=== PATIENT | male | born 1990 | race Caucasian/White ===

== ENCOUNTER 2017-03-01 22:52 | Observation (INO) | payer OTHER, BC ==
[~2017-03-01] VITALS: Ht 180.3 cm; Wt 150.0 kg
[~2017-03-01 22:52] MED LIST: FLUO-1 PO; SERO100T PO; TYLE3 PO
[2017-03-01 22:56] VITALS: BP 175/85; PULSE 98; RESP 16; TEMP 97.7; O2SAT 99
[2017-03-01] MEDS ORDERED: SODIUM CHLOR 0.9% 1000 ML INJ 1,000 ML IV ONE (23:30)
[2017-03-01] MEDS ORDERED: ONDANSETRON HCL 4 MG/2 ML VIAL IV ONE (23:30)
--- NOTE | 2017-03-01 23:37 | PD ---
HPI Chief Complaint: Chest Pain Time Seen by Provider: 23:20 Travel History International Travel<30 days: No Contact w/Intl Traveler<30days: No Traveled to known affect area: No History of Present Illness HPI The patient is a 26 year old male who presents to the [facility] emergency department with a history of reportedly not feeling well over the last week. He reports that he's had diarrhea 4-5 times per day at the onset of the symptoms. He reports that the stool is dark brown. He denies having any blood or mucus in the stool. Additionally reports having nausea without vomiting. The patient reports that he has had a nonproductive cough. He denies having any head congestion or nasal discharge. He denies having any known fevers. He reports that he has had increased fatigue throughout the weekend and a headache that is generalized throughout his head. He reports that he has been taking ibuprofen when necessary for the headache. He reports that this evening while he was at work at 7 PM he noticed that he was beginning to have left-sided chest pain. He denies having any shortness of breath. He denies having any radiation of pain. He denies having any diaphoresis. He reports that throughout the weekend he has been intermittently lightheaded and had fatigue. He reports that the headaches come and go. The patient was noted at work by the work nurse to have elevated blood pressure and an elevated heart rate. He reports that his blood pressure was up to 167/90 and his heart rate was 102- 110. The patient was then sent to the emergency department for evaluation. He reports that he last saw his primary care physician approximately 9 months ago. He denies ever being diagnosed with hypertension previously.On review of systems otherwise, the patient denies having any abdominal pain, urinary symptoms, one-sided weakness, slurred speech, double vision or change in vision , or numbness or tingling to his extremities PFSH Past Medical History Narrative Medical The patient's past medical history is significant for bronchitis, history of depression. Depression: Yes Diminished Hearing: No Past Surgical History Surgical History: No Previous Surgery Social History Alcohol Use: No Tobacco Use: Yes (CHEW) Substance Use: No Allergies-Medications (Allergen,Severity, Reaction): Coded Allergies: No Known Allergies (Verified , 03/01/17) Reported Meds & Prescriptions Reported Meds & Active Scripts Active No Active Prescriptions or Reported Medications Narrative Medication Ibuprofen when necessary headache, 2 tablets one time per week. Review of Systems Except as stated in HPI: all other systems reviewed are Neg General / Constitutional: No: Fever Eyes: No: Visual changes HENT: Positive: Headaches, Lightheadedness, Neck Pain, No: Rhinorrhea, Congestion, Neck Stiffness Cardiovascular: Positive: Chest Pain or Discomfort, No: Dyspnea on exertion Respiratory: Positive: Cough, No: Shortness of Breath Gastrointestinal: Positive: Nausea, Diarrhea, Changes in Bowel Habits, No: Vomiting, Abdominal Pain, Hematemesis, Hematochezia, Indigestion, Loss of Appetite Genitourinary: No: Dysuria Musculoskeletal: No: Pain Skin: No Rash Neurologic: Positive: Weakness (generalized fatigue), Headache, No: Focal Abnormalities, Change in Mentation, Slurred Speech, Sensory Disturbance Psychiatric: No: Depression Endocrine: No: Polydipsia Hematologic/Lymphatic: No: Easy Bruising Physical Exam Narrative General: The patient is a well-developed well-nourished male in no acute distress. Head and Neck exam: Head is normocephalic atraumatic. Eyes: EOMI, pupils are equal round and reactive to light. Nose: Midline septum with pink mucous membranes Mouth: Dentition unremarkable. Moist mucus membranes. Posterior oropharynx is mildly erythematous. No tonsillar hypertrophy. Uvula midline. Airway patent. Neck: No palpable lymphadenopathy. No nuchal rigidity. No thyromegaly. Cardiovascular: Regular rate and rhythm without murmurs, gallops, or rubs. No pulse deficit to the extremities on simultaneous auscultation and palpation of his radial artery. Lungs: Clear to auscultation bilaterally. No wheezes, rhonchi, or rales. Abdomen: Soft, without tenderness to palpation in all 4 quadrants of the abdomen. No guarding, rebound, or rigidity. Normal bowel sounds are audible. No tenderness on palpation of McBurney's point. Extremities: No clubbing, cyanosis, or edema. No calf tenderness on palpation. Back: No costovertebral angle tenderness to palpation. Neurologic Exam: Grossly nonfocal. Skin Exam: No rash noted. Intact skin that is warm and dry. Data Data Last Documented VS Vital Signs Date Time Temp Pulse Resp B/P (MAP) Pulse Ox O2 Delivery O2 Flow Rate FiO2 03/01/17 23:55 23 98 Room Air 03/01/17 22:56 97.7 98 Orders Orders Electrocardiogram (03/01/17 23:26) Complete Blood Count With Diff (03/01/17 23:26) Comprehensive Metabolic Panel (03/01/17:) Creatine Kinase (Cpk) (03/01/17 23:26) Ckmb (Isoenzyme) Profile (03/01/17 23:26) Troponin I (03/01/17:) B-Type Natriuretic Peptide (03/01/17:) Prothrombin Time / Inr (Pt) (03/01/17:) Act Partial Throm Time (Ptt) (03/01/17 23:) Lipase (03/01/17:) Urinalysis - C+S If Indicated (03/01/17:) Westergren Sedimentation Rate (03/01/17 23:) Magnesium (Mg) (03/01/17 23:) Thyroid Stimulating Hormone (03/01/17:) Chest, Single Ap (03/01/17 23:) Ct Brain W/O Iv Contrast(Rout) (03/01/17 23:26) Iv Access Insert/Monitor (03/01/17 23:26) Ecg Monitoring (03/01/17:) Oximetry (03/01/17 23:26) Sodium Chlor 0.9% 1000 Ml Inj (Ns 1000 M (03/01/17 23:30) Ondansetron Inj (Zofran Inj) (03/01/17 23:30) Lactic Acid Sepsis Protocol (03/02/17 01:00) Blood Culture (03/02/17 01:00) Sodium Chlor 0.9% 1000 Ml Inj (Ns 1000 M (03/02/17 01:15) CKMB (03/01/17 ) CKMB% (03/01/17 ) Ct Pulmonary Angiogram (03/02/17 01:59) Iohexol 350 Inj (Omnipaque 350 Inj) (03/02/17 02:10) Enteric Path (Stool) (03/02/17 03:11) C Diff Toxin Pcr (03/02/17 03:11) Stool Wbc (Leukocytes) (03/02/17 03:11) Aspirin Chew (Aspirin Chew) (03/02/17 04:00) Levofloxacin 750 Mg Premix Inj (Levaquin (03/02/17 04:00) Metronidazole 500 Mg Inj (Flagyl 500 Mg (03/02/17 04:00) Admit Order (Ed Use Only) (03/02/17 04:11) Labs Laboratory Tests Test 03/01/17 00:00 03/02/17 01:15 03/02/17 02:05 White Blood Count 17.9 TH/MM3 Red Blood Count 4.92 MIL/MM3 Hemoglobin 14.2 GM/DL Hematocrit 41.7 % Mean Corpuscular Volume 84.9 FL Mean Corpuscular Hemoglobin 28.9 PG Mean Corpuscular Hemoglobin Concent 34.1 % Red Cell Distribution Width 14.1 % Platelet Count 345 TH/MM3 Mean Platelet Volume 9.6 FL Neutrophils (%) (Auto) 71.0 % Lymphocytes (%) (Auto) 20.6 % Monocytes (%) (Auto) 6.7 % Eosinophils (%) (Auto) 0.9 % Basophils (%) (Auto) 0.8 % Neutrophils # (Auto) 12.7 TH/MM3 Lymphocytes # (Auto) 3.7 TH/MM3 Monocytes # (Auto) 1.2 TH/MM3 Eosinophils # (Auto) 0.2 TH/MM3 Basophils # (Auto) 0.2 TH/MM3 CBC Comment AUTO DIFF Differential Total Cells Counted 100 Neutrophils % (Manual) 62 % Band Neutrophils % 8 % Lymphocytes % 12 % Monocytes % 4 % Eosinophils % 1 % Basophils % 3 % Neutrophils # (Manual) 12.5 TH/MM3 Differential Comment FINAL DIFF MANUAL Atypical Lymphocytes 10 % Platelet Estimate NORMAL Platelet Morphology Comment ENLARGED Red Cell Morphology Comment NORMAL Erythrocyte Sedimentation Rate 17 mm/hr Prothrombin Time 10.4 SEC Prothromb Time International Ratio 0.9 RATIO Activated Partial Thromboplast Time 23.3 SEC Blood Urea Nitrogen 9 MG/DL Creatinine 0.88 MG/DL Random Glucose 83 MG/DL Total Protein 8.6 GM/DL Albumin 3.8 GM/DL Calcium Level 8.3 MG/DL Magnesium Level 2.0 MG/DL Alkaline Phosphatase 68 U/L Aspartate Amino Transf (AST/SGOT) 62 U/L Alanine Aminotransferase (ALT/SGPT) 57 U/L Total Bilirubin 0.4 MG/DL Sodium Level 135 MEQ/L Potassium Level 4.2 MEQ/L Chloride Level 103 MEQ/L Carbon Dioxide Level 22.7 MEQ/L Anion Gap 9 MEQ/L Estimat Glomerular Filtration Rate 105 ML/MIN Total Creatine Kinase 420 U/L Creatine Kinase MB 4.4 NG/ML Creatine Kinase MB % 1.0 % Troponin I LESS THAN 0.02 NG/ML B-Type Natriuretic Peptide LESS THAN 2 PG/ML Lipase 152 U/L Thyroid Stimulating Hormone 3rd Gen 2.360 uIU/ML Lactic Acid Level 1.3 mmol/L Urine Color YELLOW Urine Turbidity CLEAR Urine pH 6.0 Urine Specific [place] 1.020 Urine Protein NEG mg/dL Urine Glucose (UA) NEG mg/dL Urine Ketones NEG mg/dL Urine Occult Blood NEG Urine Nitrite NEG Urine Bilirubin NEG Urine Urobilinogen LESS THAN 2.0 MG/DL Urine Leukocyte Esterase NEG Urine RBC LESS THAN 1 /hpf Urine WBC LESS THAN 1 /hpf Urine Mucus FEW /lpf Microscopic Urinalysis Comment CULT NOT INDICATED MDM Medical Decision Making Medical Screen Exam Complete: Yes Emergency Medical Condition: Yes Medical Record Reviewed: Yes Interpretation(s) Last Impressions CT Angiography 03/02/17 0159 Signed Impressions: Service Date/Time: Thursday, March 02, 2017 02:11 - CONCLUSION: Normal examination. Mathew Linton MD Head CT 03/01/172325 Signed Impressions: Service Date/Time: Thursday, March 02, 2017 00:25 - CONCLUSION: Normal examination. Mathew Linton MD Chest X-Ray 03/01/172325 Signed Impressions: Service Date/Time: Wednesday, March 01, 2017 23:38 - CONCLUSION: No acute disease. Mathew Linton MD Differential Diagnosis Viral syndrome, versus acute coronary syndrome, versus pneumonia, versus bronchitis, versus intracranial hemorrhage, versus intracranial mass, versus endocrine disorder, versus pulmonary embolism Narrative Course During the course of the patients emergency department visit, the patients history, examination, and differential diagnosis were reviewed with the patient. The patient was placed on a radiographer cardiac catheterization with oximetry and frequent blood pressure monitoring. The patient had IV access obtained and blood work sent for analysis. The patient has an ECG done on arrival that shows a sinus rhythm heart rate of 89, T waves are inverted in lead 3, V1, no acute ST segment elevation. The patient was initially provided normal saline 1 L IV fluid bolus which was repeated 1, Zofran 4 mg IV. The patients laboratory studies were reviewed and remarkable for a white count of 17.9, hemoglobin 14.2, platelets 345 with neutrophils 62, bands 8, lymphocytes 12, sedimentation rate is 17, CMP is remarkable for a calcium of 8.3 , AST 62, CPK 420, MB percent 1, troponin I less than 0.02, BNP is less than 2, lipase 152, TSH 2.36, PT PTT within normal limits Radiology studies were reviewed and remarkable for a chest x-ray that shows no acute cardiopulmonary disease, CTA to rule out PE shows no acute abnormality, no evidence of PE. CT scan of the brain shows no acute abnormality. Stool studies were ordered in this patient. Given the patient's lucid leukocytosis and bandemia, the patient will be admitted to the hospital for continued evaluation and treatment. The patient was given an initial dose of Levaquin and Flagyl. The patient will be admitted for rule out serial cardiac enzyme protocol. The patients results were discussed with the patient, including the plan of care. I explained that further testing and/ or monitoring is indicated based on the patients history, examination, and/ or laboratory findings. Therefore, I recommended admission for additional evaluation. The patient expressed understanding and was agreeable with this plan. The patient was admitted to the hospital in stable condition and sent to a bed under the care of [facility] residents. Sepsis Criteria SIRS Criteria (2 or more): Heart rate over 90, RR > 20 or PaCO2 < 32, WBC > 41759, < 4000 or > 10% bands Criteria Outcome: Meets SIRS criteria Physician Communication Physician Communication The patient's case including history, pertinent physical examination findings, and laboratory studies were discussed with Dr. Baires, the [facility] resident. It was agreed that the patient would be admitted to the [facility] resident service. Diagnosis Primary Impression: Leukocytosis Qualified Codes: D72.825 - Bandemia Additional Impression: Chest pain, rule out acute myocardial infarction Admitting Information Admitting Physician Requests: Observation Scripts No Active Prescriptions or Reported Meds Kisha Zarco MD Mar 01, 2017 23:37
--- NOTE | 2017-03-01 23:53 | RADRPT ---
EXAM DATE/TIME: 03/01/2017 23:38 [facility] COMPARISON: No previous studies available for comparison. INDICATIONS : Chest pain. MEDICAL HISTORY : None. SURGICAL HISTORY : None. ENCOUNTER: Initial ACUITY: 1 day PAIN SCORE: 0/10 LOCATION: Bilateral chest FINDINGS: A single view of the chest demonstrates the lungs to be symmetrically aerated without evidence of mas s, infiltrate or effusion. The cardiomediastinal contours are unremarkable. Osseous structures are intact. CONCLUSION: No acute disease. Mathew Linton MD on March 01, 2017 at 23:51 Board Certified Radiologist. This report was verified electronically.
[2017-03-01 23:55] VITALS: RESP 23; O2SAT 98
[2017-03-02 00:31] LABS: INTERNATIONAL NORMALIZED RATIO 0.9 RATIO; PROTHROMBIN TIME - PATIENT 10.4 SEC (9.8-11.6)
[2017-03-02 00:35] LABS: AUTOMATED NEUTROPHIL # 12.7 TH/MM3 (1.8-7.7); BASOPHIL # 0.2 TH/MM3 (0-0.2); BASOPHIL % 0.8 % (0.0-2.0); EOSINOPHIL # 0.2 TH/MM3 (0-0.4); EOSINOPHIL % 0.9 % (0.0-4.0); HEMATOCRIT 41.7 % (39.0-51.0); HEMOGLOBIN 14.2 GM/DL (13.0-17.0); LYMPH % 20.6 % (9.0-44.0); LYMPHOCYTE # 3.7 TH/MM3 (1.0-4.8); MEAN CELL VOLUME 84.9 FL (80.0-100.0); MEAN CORPUSCULAR HEMOGLOBIN 28.9 PG (27.0-34.0); MEAN CORPUSCULAR HGB CONC 34.1 % (32.0-36.0); MEAN PLATELET VOLUME 9.6 FL (7.0-11.0); MONO % 6.7 % (0.0-8.0); MONOCYTE # 1.2 TH/MM3 (0-0.9); PLATELET COUNT 345 TH/MM3 (150-450); RED BLOOD COUNT 4.92 MIL/MM3 (4.50-5.90); RED CELL DISTRIBUTION WIDTH 14.1 % (11.6-17.2); WHITE BLOOD COUNT 17.9 TH/MM3 (4.0-11.0)
--- NOTE | 2017-03-02 00:41 | RADRPT ---
EXAM DATE/TIME: 03/02/2017 00:25 [facility] COMPARISON: No previous studies available for comparison. INDICATIONS : Cephalgia x2 days. RADIATION DOSE: 43.42 CTDIvol (mGy) MEDICAL HISTORY : None SURGICAL HISTORY : None. ENCOUNTER: Initial ACUITY: 2 days PAIN SCALE: 4/10 LOCATION: cranial TECHNIQUE: Multiple contiguous axial images were obtained of the head. Using automated exposure control and adj ustment of the mA and/or kV according to patient size, radiation dose was kept as low as reasonably a chievable to obtain optimal diagnostic quality images. DICOM format image data is available electro nically for review and comparison. FINDINGS: CEREBRUM: The ventricles are normal for age. No evidence of midline shift, mass lesion, hemorrhage or acute in farction. No extra-axial fluid collections are seen. POSTERIOR FOSSA: The cerebellum and brainstem are intact. The 4th ventricle is midline. The cerebellopontine angle i s unremarkable. EXTRACRANIAL: The visualized portion of the orbits is intact. SKULL: The calvaria is intact. No evidence of skull fracture. CONCLUSION: Normal examination. Mathew Linton MD on March 02, 2017 at 0:38 Board Certified Radiologist. This report was verified electronically.
[2017-03-02 00:57] LABS: ALBUMIN 3.8 GM/DL (3.4-5.0); ALKALINE PHOSPHATASE 68 U/L (45-117); ALT (GPT) 57 U/L (12-78); AST (GOT) 62 U/L (15-37); BICARBONATE 22.7 MEQ/L (21.0-32.0); BLOOD UREA NITROGEN 9 MG/DL (7-18); CALCIUM 8.3 MG/DL (8.5-10.1); CHLORIDE 103 MEQ/L (98-107); CREATININE 0.88 MG/DL (0.60-1.30); GLOMERULAR FILTRATION RATE 105 ML/MIN (>89); GLUCOSE,RANDOM 83 MG/DL (74-106); LIPASE 152 U/L (73-393); SODIUM (NA) 135 MEQ/L (136-145); TOTAL BILIRUBIN ADULT 0.4 MG/DL (0.2-1.0); TOTAL PROTEIN 8.6 GM/DL (6.4-8.2); TROPONIN I LESS THAN 0.02 NG/ML (0.02-0.05)
[2017-03-02] MEDS ORDERED: SODIUM CHLOR 0.9% 1000 ML INJ 1,000 ML IV ONE (01:15)
[2017-03-02 01:28] LABS: ATYPICAL LYMPHOCYTES 10 % (0-0); BANDS 8 % (0-6); BASOPHILS 3 % (0-2); LYMPHOCYTES 12 % (9-44); MONOCYTES 4 % (0-8); NEUTROPHIL # MANUAL DIFF 12.5 TH/MM3 (1.8-7.7); POLYS (SEG NEUTROPHILS) 62 % (16-70)
[2017-03-02] MEDS ORDERED: IOHEXOL 350 MG/ML 10 ML VIAL (for RAD DIAG) IVCONTRAST ONE (02:10)
[2017-03-02 02:32] LABS: BILIRUBIN, URINE NEG (NEG); BLOOD, URINE NEG (NEG); GLUCOSE,URINE NEG (NEG); KETONE, URINE NEG (NEG); MUCUS URINE FEW /lpf (OCC); NITRITE,URINE NEG (NEG); URINE COLOR YELLOW (YELLW/STRAW); URINE LEUKOCYTE ESTERASE NEG (NEG)
--- NOTE | 2017-03-02 02:42 | RADRPT ---
EXAM DATE/TIME: 03/02/2017 02:11 [facility] COMPARISON: No previous studies available for comparison. INDICATIONS : Chest pain, radiates down left arm. Evaluate for embolism. IV CONTRAST: 75 cc Omnipaque 350 (iohexol) IV RADIATION DOSE: 23.38 CTDIvol (mGy) MEDICAL HISTORY : None SURGICAL HISTORY : None. ENCOUNTER: Initial ACUITY: 1 day PAIN SCALE: 4/10 LOCATION: chest TECHNIQUE: Volumetric scanning of the chest was performed using a pulmonary embolism protocol MIP images were re constructed. Using automated exposure control and adjustment of the mA and/or kV according to patien t size, radiation dose was kept as low as reasonably achievable to obtain optimal diagnostic quality images. DICOM format image data is available electronically for review and comparison. Follow-up recommendations for detected pulmonary nodules are based at a minimum on nodule size and pa tient risk factors according to Fleischner Society Guidelines. FINDINGS: PULMONARY ARTERIES: No filling defects are seen in the pulmonary arteries through the segmental level. LUNGS: There is no consolidation or pneumothorax . No concerning pulmonary nodule is visualized. PLEURAE: There is no pleural thickening or pleural effusion. MEDIASTINUM: There is good visualization of the great vessels of the middle mediastinum. No evidence of mediastin al or hilar adenopathy/mass. MUSCULOSKELETAL: Within normal limits for patient age. MISCELLANEOUS: The visualized upper abdominal organs demonstrate no acute abnormality. CONCLUSION: Normal examination. Mathew Linton MD on March 02, 2017 at 2:33 Board Certified Radiologist. This report was verified electronically.
[2017-03-02] MEDS ORDERED: ASPIRIN 81 MG CHEW TAB CHEW ONE (04:00)
[2017-03-02] MEDS ORDERED: metroNIDAZOLE 500 MG INJ 100 ML IV ONE (04:00)
[2017-03-02] MEDS ORDERED: LEVOFLOXACIN 750 MG PREMIX INJ 150 ML IV ONE (04:00)
[2017-03-02 04:30] VITALS: BP 119/61; PULSE 76; RESP 18; O2SAT 99
[2017-03-02] MEDS ORDERED: SODIUM CHLORIDE 0.9% FLUSH 10 ML FLUSH IV FLUSH PRN (04:30)
[2017-03-02] MEDS ORDERED: LACTULOSE SYRUP 20 GM/30 ML CUP PO PRN (04:30)
[2017-03-02] MEDS ORDERED: ACETAMINOPHEN 325 MG TAB PO PRN (04:30)
[2017-03-02] MEDS ORDERED: SENNOSIDES 8.6 MG TAB PO PRN (04:30)
[2017-03-02] MEDS ORDERED: ONDANSETRON HCL 4 MG/2 ML VIAL IVP PRN (04:30)
[2017-03-02] MEDS ORDERED: HEPARIN SODIUM - SQ 10,000 UNITS/ML VIAL SQ SCH (04:30)
[2017-03-02] MEDS ORDERED: MAGNESIUM HYDROXIDE SUSP 30 ML CUP PO PRN (04:30)
[2017-03-02] MEDS ORDERED: NALOXONE HCL 0.4 MG/ML AMP IV PUSH PRN (04:30)
[2017-03-02] MEDS ORDERED: BISACODYL 10 MG SUPP RECTAL PRN (04:30)
--- NOTE | 2017-03-02 04:48 | HHI.HP ---
HPI Service Family Medicine Primary Care Physician No Primary Care Physician Admission Diagnosis leukocytosis, bandemia, diarrhea Diagnoses: International Travel<30 Days: No Contact w/Intl Traveler<30days: No Known Affected Area: No History of Present Illness Patient 26-year-old Male presents to the ED with complaints of chest pain, lightheadedness and elevated BP and HR (taken at work 169/90 and 102-110, respectively). Pt reports that CP and lightheadedness began around 7pm on . He describes CP as burning-pressure like sensation in the middle of his chest. Pt stated pain was 6/10 with radiation to left arm when he coughed. Cough started 1 wk ago and is non-productive but associated with 4 episodes of teaspoon size red bright blood that occurred after coughing fits. Pt also reports nausea since 10pm with 2 episodes of vomiting pinkish-fluid (of note pt had red gatorade). Pt also reports non-bloody watery diarrhea for the past 2 weeks, with 3-5 episodes per day. Pt also endorses tension DE JESUS on the back of neck that started around 6pm on 03/01 for which he took ibuprofen with appropriate response. 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 His last TB test was 5 months ago and it was negative. Currently pt states he feels chest discomfort, rates CP 5/10, non radiating, no nausea. Denies visual problems, abd pain, fever, sick contacts, eating new foods. Pt has not had his flu vaccine. Of note: pt stated he finished a course of amoxicillin 2 wks ago after a tooth extraction. Denies any tooth pain. allergies none med none Review of Systems Constitutional: COMPLAINS OF: Fatigue (started thursday), Weight gain (12 lbs in the past 6months due to poor diet, per pt), Dizziness (started thursday), DENIES: Fever, Chills, Change in appetite Endocrine: DENIES: Heat/cold intolerance Eyes: DENIES: Blurred vision, Vision loss Ears, nose, mouth, throat: COMPLAINS OF: Tinnitus (started 1 wk ago, occurs every other day), DENIES: Hearing loss, Ear Pain Respiratory: COMPLAINS OF: Cough, Hemoptysis (1 wk ago, bright red teaspoon size, happens after coughing fits ( 4 times during the past wk)), DENIES: Wheezing, Shortness of breath Cardiovascular: COMPLAINS OF: Chest pain, DENIES: Palpitations, Syncope, Lower Extremity Edema Gastrointestinal: COMPLAINS OF: Diarrhea, Nausea, Vomiting, DENIES: Abdominal pain, Bloody stools, Difficulty Swallowing Genitourinary: COMPLAINS OF: Urgency (started 2months, 6 times a day, normally 2 times a day), Dysuria, DENIES: Hematuria Musculoskeletal: DENIES: Joint pain, Muscle aches Integumentary: DENIES: Pruritus, Rash Hematologic/lymphatic: DENIES: Bruising Neurologic: COMPLAINS OF: Headache, DENIES: Paresthesias, Seizures Psychiatric: COMPLAINS OF: Confusion (started on thursday, feeling confused forgetting to do tasks at work), DENIES: Mood changes, Depression Past Family Social History Past Medical History PMHx -hemorrhoids, 2 months ago -cpap-has been using it for the past 3 months Past Surgical History none Allergies: Coded Allergies: No Known Allergies (Verified , 03/01/17) Family History great grandmother-heart attack at old age (pt does not remember exact age) mother- DM grandma-DM Social History SHx -Lives with finance and her parents -Works as a crime prevention police officer at [employer] -Uses chewing tobacco, 1 can/day -alcohol use: social - Denies illicit drug -Pets- 2 dogs and 2 cats Sexual HX -sexually active with 5 female partners. Pt stated he uses condoms except with fiance. Denies hx of STD, neg HIV screen a yr ago. Physical Exam Vital Signs Vital Signs Date Time Temp Pulse Resp B/P (MAP) Pulse Ox O2 Delivery O2 Flow Rate FiO2 03/01/17 23:55 23 98 Room Air 03/01/17 22:56 97.7 98 16 175/85 (115) 99 Room Air Physical Exam GENERAL: This is a well-nourished, well-developed patient, in no apparent distress. SKIN: No rashes, ecchymoses or lesions. Cool and dry. HEAD: Atraumatic. Normocephalic. No temporal or scalp tenderness. EYES: Pupils equal round and reactive. Extraocular motions intact. No scleral icterus. No injection or drainage. ENT: Nose without bleeding, purulent drainage or septal hematoma. Throat without erythema, tonsillar hypertrophy or exudate. Uvula midline. Airway patent. NECK: Trachea midline. No JVD or lymphadenopathy. Supple, nontender, no meningeal signs. CARDIOVASCULAR: Regular rate and rhythm without murmurs, gallops, or rubs. Chest pain reproducible on palpation. RESPIRATORY: Clear to auscultation. Breath sounds equal bilaterally. No wheezes , rales, or rhonchi. GASTROINTESTINAL: Abdomen soft, non-tender, nondistended. No hepato-splenomegaly , or palpable masses. No guarding. MUSCULOSKELETAL: Extremities without clubbing, cyanosis, or edema. No joint tenderness, effusion, or edema noted. No calf tenderness. Negative Homans sign bilaterally. +2DP pulses BL. NEUROLOGICAL: Awake and alert. Cranial nerves II through XII intact. Motor and sensory grossly within normal limits. Five out of 5 muscle strength in all muscle groups. Normal speech. Laboratory Laboratory Tests Test 03/02/17 01:15 03/02/17 02:05 Lactic Acid Level 1.3 Urine Color YELLOW Urine Turbidity CLEAR Urine pH 6.0 Urine Specific [place] 1.020 Urine Protein NEG Urine Glucose (UA) NEG Urine Ketones NEG Urine Occult Blood NEG Urine Nitrite NEG Urine Bilirubin NEG Urine Urobilinogen LESS THAN 2.0 Urine Leukocyte Esterase NEG Urine RBC LESS THAN 1 Urine WBC LESS THAN 1 Urine Mucus FEW Microscopic Urinalysis Comment CULT NOT INDICATED Date/Time Source Procedure Growth Status 03/02/17 01:15 Blood Peripheral Aerobic Blood Culture Pending Received 03/02/17 01:15 Blood Peripheral Anaerobic Blood Culture Pending Received Result Diagram: 03/01/17 0000 03/01/17 0000 Imaging Last [address] Angiography 03/02/17 0159 Signed Impressions: Service Date/Time: Thursday, March 02, 2017 02:11 - CONCLUSION: Normal examination. Mathew Linton MD Head CT 03/01/172325 Signed Impressions: Service Date/Time: Thursday, March 02, 2017 00:25 - CONCLUSION: Normal examination. Mathew Linton MD Chest X-Ray 03/01/172325 Signed Impressions: Service Date/Time: Wednesday, March 01, 2017 23:38 - CONCLUSION: No acute disease. Mathew Linton MD Septic Shock Reassessment Heart: Regular rate and rhythm Lungs: Clear Skin: Warm, Dry Peripheral Pulses: Bounding Right Radial Bounding Left Radial Bounding Right Popliteal Bounding Left Popliteal Bounding Right Dorsalis Pedis Bounding Left Dorsalis Pedis Bounding Right Posterior Tibial Bounding Left Posterior Tibial Capillary Refill: <2 seconds Caprini VTE Risk Assessment Caprini VTE Risk Assessment: Mod/High Risk (score >= 2) Caprini Risk Assessment Model Point Value = 1 Point Value = 2 Point Value = 3 Point Value = 5 Age 41-60 Minor surgery BMI > 25 kg/m2 Swollen legs Varicose veins or History of unexplained or recurrent spontaneous Oral contraceptives or hormone replacement Sepsis (< 1 month) Serious lung disease, including pneumonia (< 1 month) Abnormal pulmonary function Acute myocardial infarction Congestive heart failure (< 1 month) History of inflammatory bowel disease Medical patient at bed rest Age 61-74 Arthroscopic surgery Major open surgery (> 45 min) Laparoscopic surgery (> 45 min) Malignancy Confined to bed (> 72 hours) Immobilizing plaster cast Central venous access Age >= 75 History of VTE Family history of VTE Factor V Leiden Prothrombin [id number] Lupus anticoagulant Anticardiolipin antibodies Elevated serum homocysteine Heparin-induced thrombocytopenia Other congenital or acquired thrombophilia Stroke (< 1 month) Elective arthroplasty Hip, pelvis, or leg fracture Acute spinal cord injury (< 1 month) Prophylaxis Regimen Total Risk Factor Score Risk Level Prophylaxis Regimen 0-1 Low Early ambulation 2 Moderate Order ONE of the following: *Sequential Compression Device (SCD) *Heparin 5000 units SQ BID 3-4 Higher Order ONE of the following medications: *Heparin 5000 units SQ TID *Enoxaparin/Lovenox 40 mg SQ daily (WT < 150 kg, CrCl > 30 mL/min) *Enoxaparin/Lovenox 30 mg SQ daily (WT < 150 kg, CrCl > 10-29 mL/min) *Enoxaparin/Lovenox 30 mg SQ BID (WT < 150 kg, CrCl > 30 mL/min) AND/OR *Sequential Compression Device (SCD) 5 or more Highest Order ONE of the following medications: *Heparin 5000 units SQ TID (Preferred with Epidurals) *Enoxaparin/Lovenox 40 mg SQ daily (WT < 150 kg, CrCl > 30 mL/min) *Enoxaparin/Lovenox 30 mg SQ daily (WT < 150 kg, CrCl > 10-29 mL/min) *Enoxaparin/Lovenox 30 mg SQ BID (WT < 150 kg, CrCl > 30 mL/min) AND *Sequential Compression Device (SCD) Assessment and Plan Assessment and Plan Patient 26-year-old Male presents to the ED with complaints of chest pain, lightheadedness and elevated BP and HR (taken at work 169/90 and 102-110, respectively). Pt admitted for further workup and management of CP and gastroenteritis. Code Status Full code Discussed Condition With Dr. Monica Baires Problem List: (1) Chest pain ICD Codes: R07.9 - Chest pain, unspecified Status: Acute Plan: Pt with complaints of burning-pressure like CP associated with lightheadedness, nausea, vomiting and elevated BP and HR. Normal cardio exam. CP reproducible upon palpation. CP radiates to Left arm with coughing. Afebrile -f/u bmp, ckmb,cpk, troponin, cbc with diff, -EKG showed tachycardia, normal sinus rhythm, consider repeat EKG this am -Pt met SIRS criteria on admission, HR- 98 and WBC- 17.9 -troponin 1- <0.02, CKMB 4.4, total creatine kinase 420, lactic acid- 1.3 -Normal CXR, head CT and CT angiography -Negative for influenza A and B -will continue to monitor VS -Pt received ASA 324mg, zofran 4mg, fluid bolus (2) Gastroenteritis ICD Codes: K52.9 - Noninfective gastroenteritis and colitis, unspecified Status: Acute Plan: Pt with 2 wk hx of non-bloody watery diarrhea, 3-5 times a day possibly due to gastroenteritis. Endorses sxs of fatigue. Denies abd pain, eating new foods. -stool studies pending -Pt placed on clear liquid diet -f/u blood cx -c/w IVF -c/w metronidazole and levofloxacin for GI anaerobe coverage -negative UA (3) Mononucleosis ICD Codes: B27.90 - Infectious mononucleosis, unspecified without complication Plan: -will workup pt for possible mononucleosis infection (4) SIRS (systemic inflammatory response syndrome) ICD Codes: R65.10 - Systemic inflammatory response syndrome (SIRS) of non- infectious origin without acute organ dysfunction Plan: Pt met SIRS criteria on admission, HR- 98 and WBC- 17.9 -lactic acid- 1.3 -unknown infection source at the moment -likely due to GI source of infection due to 2 wk hx of diarrhea (5) DIMITRY (obstructive sleep apnea) ICD Codes: G47.33 - Obstructive sleep apnea (adult) (pediatric) Plan: -Pt of CPAP at home -will continue to monitor need for cpap during admission (6) Nutrition, metabolism, and development symptoms ICD Codes: R63.8 - Other symptoms and signs concerning food and fluid intake Plan: Fluids: 200mls/hr Electrolytes: replete as needed Diet: clear liquid diet DVT ppx: heparin subQ 5000units Q12h Physician Certification 2 Midnight Certification Type: Admission for Inpatient Services Order for Inpatient Services The services are ordered in accordance with Medicare regulations or non- Medicare payer requirements, as applicable. In the case of services not specified as inpatient-only, they are appropriately provided as inpatient services in accordance with the 2-midnight benchmark. Estimated LOS (days): 2 days is the estimated time the patient will need to remain in the hospital, assuming treatment plan goals are met and no additional complications. Post-Hospital Plan: Home Sharif Valle MD, R1 Mar 02, 2017 04:48
[2017-03-02] MEDS: SODIUM CHLOR 0.9% 1000 ML INJ 1,000 ML IV SCH ×2 (05:48→09:27)
[2017-03-02 07:23] VITALS: BP 142/79; PULSE 75; RESP 21; TEMP 96.7; O2SAT 99
[2017-03-02 07:23] LABS: TROPONIN I LESS THAN 0.02 NG/ML (0.02-0.05)
[2017-03-02] MEDS ORDERED: DOCUSATE SODIUM 50 MG/SENNA 8.6 MG TAB PO SCH (09:00)
[2017-03-02] MEDS ORDERED: SODIUM CHLORIDE 0.9% FLUSH 10 ML FLUSH IV FLUSH SCH (09:00)
[2017-03-02 09:23] VITALS: PULSE 75
--- NOTE | 2017-03-02 09:41 | HHI.DCPOC ---
Discharge Care Plan Diagnosis: (1) Costochondritis (2) SIRS (systemic inflammatory response syndrome) (3) DIMITRY (obstructive sleep apnea) Goals to Promote Your Health * To prevent worsening of your condition and complications * To maintain your health at the optimal level Directions to Meet Your Goals Take your medications as prescribed Follow your dietary instruction Follow activity as directed Keep your appointments as scheduled Take your immunizations and boosters as scheduled If your symptoms worsen call your PCP, if no PCP go to Urgent Care Center or Emergency Room Smoking is Dangerous to Your Health. Avoid second hand smoke Call the 24-hour hour crisis hotline for domestic abuse at Huan Blank MD, R3 Mar 02, 2017 09:41
--- NOTE | 2017-03-02 09:41 | HHI.DCPOC ---
Discharge Care Plan Diagnosis: (1) Costochondritis (2) SIRS (systemic inflammatory response syndrome) (3) DIMITRY (obstructive sleep apnea) Goals to Promote Your Health * To prevent worsening of your condition and complications * To maintain your health at the optimal level Directions to Meet Your Goals Take your medications as prescribed Follow your dietary instruction Follow activity as directed Keep your appointments as scheduled Take your immunizations and boosters as scheduled If your symptoms worsen call your PCP, if no PCP go to Urgent Care Center or Emergency Room Smoking is Dangerous to Your Health. Avoid second hand smoke Call the 24-hour hour crisis hotline for domestic abuse at Huan Blank MD, R3 Mar 02, 2017 09:41
--- NOTE | 2017-03-02 09:41 | HHI.DCPOC ---
Discharge Care Plan Diagnosis: (1) Costochondritis (2) SIRS (systemic inflammatory response syndrome) (3) DIMITRY (obstructive sleep apnea) Goals to Promote Your Health * To prevent worsening of your condition and complications * To maintain your health at the optimal level Directions to Meet Your Goals Take your medications as prescribed Follow your dietary instruction Follow activity as directed Keep your appointments as scheduled Take your immunizations and boosters as scheduled If your symptoms worsen call your PCP, if no PCP go to Urgent Care Center or Emergency Room Smoking is Dangerous to Your Health. Avoid second hand smoke Call the 24-hour hour crisis hotline for domestic abuse at Huan Blank MD, R3 Mar 02, 2017 09:41
[2017-03-02] MEDS ORDERED: PANTOPRAZOLE SOD 40 MG DELAYED RELEASE TAB PO ONE (10:00)
[2017-03-02] MEDS ORDERED: INFLUENZA VIRUS VACCINE (QUADRIVALENT) 0.5 ML SYR IM ONE (10:00)
[2017-03-02] MEDS ORDERED: metroNIDAZOLE 500 MG TAB PO SCH (11:00)
[2017-03-02 11:29] VITALS: BP 116/59; PULSE 77; RESP 18; TEMP 97.7; O2SAT 98
--- NOTE | 2017-03-02 12:14 | EKG ---
Date Performed: 03/01/2017 Time Performed: 23:34:21 PTAGE: 26 years EKG: Sinus rhythm NORMAL ECG NO PREVIOUS TRACING DOCTOR: Daniel Baires Interpretating Date/Time 03/02/2017 12:11:59
--- NOTE | 2017-03-02 12:14 | EKG ---
Date Performed: 03/01/2017 Time Performed: 23:34:21 PTAGE: 26 years EKG: Sinus rhythm NORMAL ECG NO PREVIOUS TRACING DOCTOR: Daniel Baires Interpretating Date/Time 03/02/2017 12:11:59
--- NOTE | 2017-03-02 12:14 | EKG ---
Date Performed: 03/01/2017 Time Performed: 23:34:21 PTAGE: 26 years EKG: Sinus rhythm NORMAL ECG NO PREVIOUS TRACING DOCTOR: Daniel Baires Interpretating Date/Time 03/02/2017 12:11:59
[2017-03-02 13:11] LABS: BASOPHIL # 0.1 TH/MM3 (0-0.2); BASOPHIL % 0.8 % (0.0-2.0); EOSINOPHIL # 0.3 TH/MM3 (0-0.4); EOSINOPHIL % 3.1 % (0.0-4.0); HEMATOCRIT 38.4 % (39.0-51.0); HEMOGLOBIN 13.3 GM/DL (13.0-17.0); LYMPH % 30.8 % (9.0-44.0); LYMPHOCYTE # 3.2 TH/MM3 (1.0-4.8); MEAN CORPUSCULAR HEMOGLOBIN 29.5 PG (27.0-34.0); MEAN CORPUSCULAR HGB CONC 34.8 % (32.0-36.0); MEAN PLATELET VOLUME 8.7 FL (7.0-11.0); MONO % 8.4 % (0.0-8.0); MONOCYTE # 0.9 TH/MM3 (0-0.9); NEUT % 56.9 % (16.0-70.0); PLATELET COUNT 253 TH/MM3 (150-450); RED BLOOD COUNT 4.52 MIL/MM3 (4.50-5.90); RED CELL DISTRIBUTION WIDTH 13.9 % (11.6-17.2); WHITE BLOOD COUNT 10.5 TH/MM3 (4.0-11.0)
--- NOTE | 2017-03-02 13:34 | HHI.FPPN ---
Subjective Remarks Pt. seen, examined and discussed with the Med A team. 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 He was also noted to have a headache which resolved with ibuprofen. The chest sensation was a pressure/burning in the midchest rated 5:10, worse with cough, which he had been doing for a week. He reports occasional blood in his sputum. He had nausea with vomiting x2. Reports no sick contacts. He is TB 1 as of one year ago, has not yet had influenza vaccine. Notably, he was on amoxicillin after a tooth extraction approximately 2 weeks ago. He has obstructive sleep apnea and uses a C Pap. Please see history and physical examination for this admission for additional details including past, family, social history and review of systems at the time of admission. This morning, patient has had no further loose stools, has been up voiding to the bathroom, actually has not had any BMs since admission. He was able to tolerate breakfast without any nausea or vomiting. His central chest discomfort persists, especially with cough. He feels as though it would be safe to go home. His girlfriend is with him. Objective Vitals Vital Signs Date Time Temp Pulse Resp B/P (MAP) Pulse Ox O2 Delivery O2 Flow Rate FiO2 03/02/17 11:29 97.7 77 18 116/59 (78) 98 03/02/17 09:23 75 03/02/17 07:23 96.7 75 21 142/79 (100) 99 03/02/17 05:56 03/02/17 04:30 76 18 119/61 (80) 99 Room Air 03/01/17 23:55 23 98 Room Air 03/01/17 22:56 97.7 98 16 175/85 (115) 99 Room Air Result Diagram: 03/02/17 1256 03/01/17 0000 Other Results Laboratory Tests Test 03/02/17 01:15 03/02/17 02:05 03/02/17 06:19 03/02/17 12:56 Lactic Acid Level 1.3 mmol/L Urine Color YELLOW Urine Turbidity CLEAR Urine pH 6.0 Urine Specific [place] 1.020 Urine Protein NEG mg/dL Urine Glucose (UA) NEG mg/dL Urine Ketones NEG mg/dL Urine Occult Blood NEG Urine Nitrite NEG Urine Bilirubin NEG Urine Urobilinogen LESS THAN 2.0 MG/DL Urine Leukocyte Esterase NEG Urine RBC LESS THAN 1 /hpf Urine WBC LESS THAN 1 /hpf Urine Mucus FEW /lpf Microscopic Urinalysis Comment CULT NOT INDICATED Total Creatine Kinase 320 U/L Creatine Kinase MB 3.6 NG/ML Creatine Kinase MB % 1.1 % Troponin I LESS THAN 0.02 NG/ML White Blood Count 10.5 TH/MM3 Red Blood Count 4.52 MIL/MM3 Hemoglobin 13.3 GM/DL Hematocrit 38.4 % Mean Corpuscular Volume 85.0 FL Mean Corpuscular Hemoglobin 29.5 PG Mean Corpuscular Hemoglobin Concent 34.8 % Red Cell Distribution Width 13.9 % Platelet Count 253 TH/MM3 Mean Platelet Volume 8.7 FL Neutrophils (%) (Auto) 56.9 % Lymphocytes (%) (Auto) 30.8 % Monocytes (%) (Auto) 8.4 % Eosinophils (%) (Auto) 3.1 % Basophils (%) (Auto) 0.8 % Neutrophils # (Auto) 6.0 TH/MM3 Lymphocytes # (Auto) 3.2 TH/MM3 Monocytes # (Auto) 0.9 TH/MM3 Eosinophils # (Auto) 0.3 TH/MM3 Basophils # (Auto) 0.1 TH/MM3 CBC Comment DIFF FINAL Differential Comment Imaging Last Impressions CT Angiography 03/02/17 0159 Signed Impressions: Service Date/Time: Thursday, March 02, 2017 02:11 - CONCLUSION: Normal examination. Mathew Linton MD Head CT 03/01/172325 Signed Impressions: Service Date/Time: Thursday, March 02, 2017 00:25 - CONCLUSION: Normal examination. Mathew Linton MD Chest X-Ray 03/01/172325 Signed Impressions: Service Date/Time: Wednesday, March 01, 2017 23:38 - CONCLUSION: No acute disease. Mathew Linton MD Objective Remarks O. CONSTITUTIONAL/GEN: normally nourished, in NAD. Morbid obesity. EYES: conjunctiva normal, PERRLA, EOMI. ENT: Mouth and pharynx normal. NECK: Supple with no thyromegaly LUNGS: clear A-P, respiratory effort is normal. CARDIOVASCULAR: RR without murmur or gallop. No significant edema. THORAX: Pressure over the sternum and chondrosternal junctions bilaterally reproduces his chest discomfort. No skin changes noted. GI/ABD: soft without masses, without organomegaly. Active bowel sounds NEURO: No focal deficits. SKIN: color normal, no rashes noted. HEME/LYMPH: no bruising, petechia or significant adenopathy MUSC: back is normal in appearance. Extremities are normal in appearance. PSYCH/MENTAL STATUS: Alert and oriented x 3. A/P Assessment and Plan Patient 26-year-old Male presents to the ED with complaints of chest pain, lightheadedness and elevated BP and HR (taken at work 169/90 and 102-110, respectively). Pt admitted for further workup and management of CP and gastroenteritis. Discharge Planning Anticipated discharge today. Attending Attestation Patient seen and examined. Case reviewed and discussed with the resident team. Agree with plan of care as discussed with me and documented in the resident note. Problem List: (1) Chest pain ICD Codes: R07.9 - Chest pain, unspecified Status: Acute Plan: Pt with complaints of burning-pressure like CP associated with lightheadedness, nausea, vomiting and elevated BP and HR. Normal cardio exam. CP reproducible upon palpation. CP radiates to Left arm with coughing. Afebrile -f/u bmp, ckmb,cpk, troponin, cbc with diff, -EKG showed tachycardia, normal sinus rhythm, consider repeat EKG this am -Pt met SIRS criteria on admission, HR- 98 and WBC- 17.9 -troponin 1- <0.02, CKMB 4.4, total creatine kinase 420, lactic acid- 1.3 -Normal CXR, head CT and CT angiography -Negative for influenza A and B -will continue to monitor VS -Pt received ASA 324mg, zofran 4mg, fluid bolus (2) Gastroenteritis ICD Codes: K52.9 - Noninfective gastroenteritis and colitis, unspecified Status: Resolved Plan: Pt with 2 wk hx of non-bloody watery diarrhea, 3-5 times a day possibly due to gastroenteritis. Endorses sxs of fatigue. Denies abd pain, eating new foods. -stool studies pending -Pt placed on clear liquid diet -f/u blood cx -c/w IVF -c/w metronidazole and levofloxacin for GI anaerobe coverage -negative UA (3) SIRS (systemic inflammatory response syndrome) ICD Codes: R65.10 - Systemic inflammatory response syndrome (SIRS) of non- infectious origin without acute organ dysfunction Status: Resolved Plan: Pt met SIRS criteria on admission, HR- 98 and WBC- 17.9 -lactic acid- 1.3 -unknown infection source at the moment -likely due to GI source of infection due to 2 wk hx of diarrhea (4) DIMITRY (obstructive sleep apnea) ICD Codes: G47.33 - Obstructive sleep apnea (adult) (pediatric) Status: Chronic Plan: -Pt of CPAP at home -will continue to monitor need for cpap during admission (5) Nutrition, metabolism, and development symptoms ICD Codes: R63.8 - Other symptoms and signs concerning food and fluid intake Status: Chronic Plan: Fluids: 200mls/hr Electrolytes: replete as needed Diet: clear liquid diet DVT ppx: heparin subQ 5000units Q12h Problem Qualifiers (1) Chest pain: Qualified Codes: R07.1 - Chest pain on breathing Claudia Mercer MD Mar 02, 2017 13:34
[2017-03-02 13:38] LABS: TROPONIN I LESS THAN 0.02 NG/ML (0.02-0.05)
[2017-03-02] MEDS ORDERED: METR-1 PO (14:21)
[2017-03-02] MEDS ORDERED: IBUP-232 PO (14:21)
[2017-03-02] MEDS ORDERED: LEVA500T20 PO (14:22)
[2017-03-02 15:56] LABS: HEPATITIS A AB IGM NEGATIVE (NEGATIVE); HEPATITIS B SURFACE ANTIGEN NEGATIVE (NEGATIVE); HEPATITIS C AB IgG NEGATIVE (NEGATIVE)
[2017-03-03] MEDS ORDERED: LEVOFLOXACIN 750 MG PREMIX INJ 150 ML IV SCH (04:30)
--- NOTE | 2017-03-03 18:02 | EKG ---
Date Performed: 03/02/2017 Time Performed: 12:17:37 PTAGE: 26 years EKG: Sinus rhythm NORMAL ECG Compared to prior tracing no significant change PREVIOUS TRACING : 03/01/2017 23.34 DOCTOR: Lisbet Nuno Interpretating Date/Time 03/03/2017 18:01:23
== END 2017-03-02 15:58 | disposition home or self-care (01) ==
LOC: NEPE 22:52 → INTOOBSV 03-02 04:12 → NEDA 03-02 04:12 → NEPHCDU 03-02 05:58
PROVIDERS: ADMIT Family Medicine; ATTEND Family Medicine
DX: M94.0 Chondrocostal junction syndrome [Tietze] (principal); R07.9 Chest pain, unspecified; B27.90 Infectious mononucleosis, unspecified without complication; K52.9 Noninfective gastroenteritis and colitis, unspecified; G47.33 Obstructive sleep apnea (adult) (pediatric); Z72.0 Tobacco use; Z23 Encounter for immunization
CPT/HCPCS: 70450; 71010; 71275; 80053; 80074; 81001; 82550; 82552; 82948; 83605; 83690; 83735; 83880; 84443; 84484; 85025; 85027; 85610; 85652; 85730; 86703; 87040; 87449; 87804; 90686; 93005; 96361; 96365; 96367; 96372; 96375; 96376; 99285; G0378; J1644; J1956; J2405; J7030; Q9967; 85007; Q2038

== ENCOUNTER 2017-12-16 00:51 | Observation (INO) ==
[2017-12-16] MEDS ORDERED: Sodium Chlor 0.9% Inj 500 ML IV.SIG ONE (01:16)
--- NOTE | 2017-12-16 01:49 | ED ---
HPI General Chief complaint: Chest Pain Stated complaint: chest pain Time Seen by Provider: 12/16/17 01:15 Source: patient Mode of arrival: EMS Limitations: no limitations History of Present Illness HPI narrative: The patient is a 27 year old male who presents to the [facility] emergency department with a history of beginning to not feel well around 4:40 PM yesterday. He reports that he began to have indigestion and a headache over bilateral temples. He reports having history of high blood pressure and is on losartan. He reports that his blood pressure has been difficult to control. He reports that he took an indigestion medicine that he cannot recall the name of and then drink a monster drink in preparation for work. The patient reports that he began to have chest pains at work. He reports that he began to have palpitations, lightheaded sensation, diaphoresis, and nausea. He reports that the pain is a stabbing pain in the center of his chest that radiates to the left arm. He denies ever having pain like this previously. The patient denies ever being diagnosed with diabetes, however he reports that he has checked his blood sugar recently and has been elevated. He reports having a family history of diabetes. He reports a prior history of hyperlipidemia, however he is not on any medication for this. He denies ever having a stress test previously. 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 He reports that he had 2 syncopal events prior to arrival. The patient's blood sugar prior to arrival was 106. The patient had a sinus tachycardia at 106 noted by ambulance services prior to arrival. Review of systems otherwise, the patient denies having any known recent fevers, cough, congestion, neck pain, abdominal pain, urinary symptoms, or neurologic symptoms. The patient incidentally reports that over the last month every other week he has had episodes of vomiting that occur on 3-4 occasions and then go away until the next time. Patient additionally reports that over the last week he has had diarrhea proximally 3-4 times per day. He denies having any blood in his stool or black or tarry stools. Related Data Home Medications Medication Instructions Recorded Confirmed aripiprazole [Abilify] 5 mg PO DAILY 12/16/17 12/16/17 losartan 50 mg PO DAILY 12/16/17 12/16/17 Allergies Allergy/AdvReac Type Severity Reaction Status Date / Time No Known Allergies Allergy Verified 12/16/17 01:20 Review of Systems ROS: all other systems reviewed are negative (Except for that which was mentioned in the HPI) [facility] History History Provided By: Patient Medical History Medical History Diabetes (Acute) HTN (hypertension) (Acute) Depression (Acute) PTSD (post-traumatic stress disorder) (Acute) Surgical History Surgical History No history of previous surgery (Acute) Family History Family History Other Osteoarthritis Social History Social History Substance History: No History of Abuse Smoking Status: Never smoker Tobacco Type: Smokeless Tobacco How Often Do You Have a Drink Containing Alcohol: Monthly or less Recent Travel in [facility] within the Last 8 Weeks: No Recent Out of Country Travel within the Last 8 Weeks: No Exam Const General: cooperative, no acute distress and well developed Nutritional Appearance: overweight Orientation: alert, awake and oriented x3 HENMT Head: normocephalic and atraumatic Nose: no nasal discharge and no epistaxis Mouth: moist mucous membranes Throat: posterior oropharynx normal and uvula midline Eyes Sclera: normal sclerae Pupils: PERRL Neck Neck: no meningeal signs, trachea midline and no JVD Resp Effort & Inspection: no use of accessory muscles Auscultation: clear to auscultation bilaterally Cardio Rate: tachycardic Rhythm: regular rhythm Heart Sounds: no gallops, no murmurs and no rubs GI Inspection: non-distended Palpation: soft, no hepatosplenomegaly and nontender Auscultation: normal bowel sounds Back/Spine/Pelvis Back: no CVA tenderness Skin General: dry skin (warm) Neuro General: alert, awake and oriented x3 Cranial Nerves: CN's II-XI intact bilaterally Speech: speech normal Motor: strength 5/5 throughout and no movement abnormalities noted Sensory Exam: no sensory deficits noted Extrem General: normal to inspection (No calf tenderness on palpation. 2+ pulses in all 4 extremities.), no clubbing, no cyanosis and edema (Trace pedal edema bilateral lower extremities) Laterality: bilaterally Psych Mood: congruent mood Affect: normal affect Judgment: judgment good Course Consultations Consultation #1: The patient's case including history, pertinent physical examination findings, and laboratory studies were discussed with Dr. Gaxiola. It was agreed that the patient would be admitted to the hospitalist service. Initial Documented Vital Signs Temperature 97.9 F 12/16/17 01:23 Pulse Rate 98 H 12/16/17 01:23 Respiratory Rate 17 12/16/17 01:23 Blood Pressure 143/69 H 12/16/17 01:23 Pulse Oximetry 99 12/16/17 01:23 Last Documented Vital Signs Temperature 97.9 F 12/16/17 01:23 Pulse Rate 92 H 12/16/17 04:46 Respiratory Rate 16 12/16/17 04:46 Blood Pressure 119/69 12/16/17 04:46 Pulse Oximetry 98 12/16/17 02:51 Medical Decision Making MDM Narrative Medical decision making narrative: During the course of the patient's emergency department visit, the patient's history, examination, and differential diagnosis were reviewed with the patient. The patient was placed on a quality assurance monitor body with oximetry and frequent blood pressure monitoring. The patient had IV access obtained and blood work sent for analysis. A diagnostic evaluation was started regarding the patient's chest pain, shortness of breath, lightheaded sensation, diaphoresis, nausea, syncope. The patient was initially provided normal saline IV fluids, aspirin 324 mg p.o. 1 was provided by ambulance services prior to arrival, sublingual nitroglycerin 3 was provided prior to arrival. 1 inch of nitroglycerin was applied to the patient's chest wall in the emergency department. The patient's diagnostic evaluation is remarkable for a white count of 16.9, platelets 326, neutrophils 72.5, hemoglobin 13.7, PT PTT unremarkable, d-dimer is 0.23 decreasing likelihood of pulmonary embolism in this patient with no other significant risk factors. CMP is remarkable for troponin I of less than 0.02, total protein 8.4, CPK 510, glucose 110, GFR of 80, MB percent 0.8, lipase 122. Urinalysis shows few mucus hazy urine otherwise unremarkable. A chest x-ray shows no acute cardiopulmonary disease. The patient's results were discussed with the patient, including the plan of care. I explained that further testing and/ or monitoring is indicated based on the patient's history, examination, and/ or laboratory findings. Therefore, I recommended admission for additional evaluation. The patient expressed understanding and was agreeable with this plan. The patient was admitted to the hospital in stable condition and sent to a bed under the care of [facility] service. Medical Screen Exam Complete: Yes Emergency Medical Condition: Yes Differential Diagnosis Differential Diagnosis: Acute coronary syndrome, versus vasovagal syncope, versus pulmonary embolism, versus new onset congestive heart failure, versus acid reflux, versus anxiety disorder Medical Records Medical records reviewed: Yes I reviewed the patient's medical records. Lab Data Lab results reviewed: Yes I reviewed the patient's lab results. Result diagrams: 12/16/17 01:30 12/16/17 01:30 Lab Results 12/16/17 12/16/17 12/16/17 Range/Units 01:30 01:30 01:30 WBC 16.9 H (4.0-11.0) th/mm3 RBC 4.77 (4.50-5.90) mil/mm3 Hgb 13.7 (13.0-17.0) gm/dL Hct 40.7 (39.0-51.0) % MCV 85.3 (80.0-100.0) fL MCH 28.8 (27.0-34.0) pg MCHC 33.7 (32.0-36.0) % RDW 14.7 (11.6-17.2) % Plt Count 326 (150-450) th/mm3 MPV 9.9 (7.0-11.0) fL Neut % (Auto) 72.5 H (16.0-70.0) % Lymph % (Auto) 19.2 (9.0-44.0) % Benzie % (Auto) 7.0 (0.0-8.0) % Eos % (Auto) 0.5 (0.0-4.0) % Baso % (Auto) 0.8 (0.0-2.0) % Neut # (Auto) 12.3 H (1.8-7.7) th/mm3 Lymph # (Auto) 3.2 (1.0-4.8) th/mm3 Benzie # (Auto) 1.2 H (0.0-0.9) th/mm3 Eos # (Auto) 0.1 (0.0-0.4) th/mm3 Baso # (Auto) 0.1 (0.0-0.2) th/mm3 WBC Differential . Differential Comment Auto diff final PT 10.5 (9.8-11.6) sec INR 1.0 Ratio APTT 26.9 (24.3-30.1) sec D-Dimer Quant (PE/DVT) 0.23 (0.00-0.50) mg/L FEU Sodium (136-145) meq/L Potassium (3.5-5.1) meq/L Chloride (98-107) meq/L Carbon Dioxide (21.0-32.0) meq/L Anion Gap (5-15) meq/L BUN (7-18) mg/dL Creatinine (0.60-1.30) mg/dL Estimated GFR (>89) mL/min Random Glucose (74-106) mg/dL Calcium (8.5-10.1) mg/dL Magnesium (1.5-2.5) mg/dL Total Bilirubin (0.2-1.0) mg/dL AST (15-37) U/L ALT (12-78) U/L Alkaline Phosphatase (45-117) U/L Total Creatine Kinase (39-308) U/L CK-MB (CK-2) (0.5-3.6) ng/mL CK-MB (CK-2) % (0.0-4.0) % Troponin I (0.02-0.05) ng/mL B-Natriuretic Peptide 3 (0-100) pg/mL Total Protein (6.4-8.2) g/dL Albumin (3.4-5.0) g/dL Lipase (73-393) U/L Urine Color (Yellw/Straw) Urine Clarity (Clear) Urine pH (5.0-8.5) Ur Specific [place] (1.002-1.035) Urine Protein (Neg-Trace) mg/dL Urine Glucose (UA) (Negative) mg/dL Urine Ketones (Negative) mg/dL Urine Occult Blood (Negative) Urine Nitrate (Negative) Urine Bilirubin (Negative) Urine Urobilinogen (Less than 2) mg/dL Ur Leukocyte Esterase (Negative) Urine RBC (0-3) /hpf Urine WBC (0-5) /hpf Urine Mucus (Occasional) /lpf Micro UA Comment Urine Culture Comments 12/16/17 12/16/17 Range/Units 01:30 02:13 WBC (4.0-11.0) th/mm3 RBC (4.50-5.90) mil/mm3 Hgb (13.0-17.0) gm/dL Hct (39.0-51.0) % MCV (80.0-100.0) fL MCH (27.0-34.0) pg MCHC (32.0-36.0) % RDW (11.6-17.2) % Plt Count (150-450) th/mm3 MPV (7.0-11.0) fL Neut % (Auto) (16.0-70.0) % Lymph % (Auto) (9.0-44.0) % Benzie % (Auto) (0.0-8.0) % Eos % (Auto) (0.0-4.0) % Baso % (Auto) (0.0-2.0) % Neut # (Auto) (1.8-7.7) th/mm3 Lymph # (Auto) (1.0-4.8) th/mm3 Benzie # (Auto) (0.0-0.9) th/mm3 Eos # (Auto) (0.0-0.4) th/mm3 Baso # (Auto) (0.0-0.2) th/mm3 WBC Differential Differential Comment PT (9.8-11.6) sec INR Ratio APTT (24.3-30.1) sec D-Dimer Quant (PE/DVT) (0.00-0.50) mg/L FEU Sodium 138 (136-145) meq/L Potassium 3.9 (3.5-5.1) meq/L Chloride 105 (98-107) meq/L Carbon Dioxide 23.1 (21.0-32.0) meq/L Anion Gap 10 (5-15) meq/L BUN 15 (7-18) mg/dL Creatinine 1.10 (0.60-1.30) mg/dL Estimated GFR 80 L (>89) mL/min Random Glucose 110 H (74-106) mg/dL Calcium 8.7 (8.5-10.1) mg/dL Magnesium 2.0 (1.5-2.5) mg/dL Total Bilirubin 0.3 (0.2-1.0) mg/dL AST 34 (15-37) U/L ALT 38 (12-78) U/L Alkaline Phosphatase 57 (45-117) U/L Total Creatine Kinase 510 H (39-308) U/L CK-MB (CK-2) 4.1 H (0.5-3.6) ng/mL CK-MB (CK-2) % 0.8 (0.0-4.0) % Troponin I Less than 0.02 L (0.02-0.05) ng/mL B-Natriuretic Peptide (0-100) pg/mL Total Protein 8.4 H (6.4-8.2) g/dL Albumin 4.0 (3.4-5.0) g/dL Lipase 122 (73-393) U/L Urine Color Yellow (Yellw/Straw) Urine Clarity Hazy H (Clear) Urine pH 5.0 (5.0-8.5) Ur Specific [place] 1.029 (1.002-1.035) Urine Protein Negative (Neg-Trace) mg/dL Urine Glucose (UA) Negative (Negative) mg/dL Urine Ketones Negative (Negative) mg/dL Urine Occult Blood Negative (Negative) Urine Nitrate Negative (Negative) Urine Bilirubin Negative (Negative) Urine Urobilinogen Less than 2 (Less than 2) mg/dL Ur Leukocyte Esterase Negative (Negative) Urine RBC Less than 1 (0-3) /hpf Urine WBC Less than 1 (0-5) /hpf Urine Mucus Few H (Occasional) /lpf Micro UA Comment Culture not ind Urine Culture Comments Culture not ind Imaging Data Radiologist's impression: Chest X-Ray 12/16/17 01:18 CONCLUSION: No acute cardiopulmonary disease ECG Data Attestation: I personally reviewed and interpreted this ECG as follows: Interpretation: The patient had an EKG done on arrival that shows a heart rate of 99, sinus rhythm, QRS duration is 85 ms, QTC 415 ms,T waves are inverted in , lead III. No acute ST segment elevation is noted.V1. Discharge Plan Discharge Disposition Patient Disposition: 30 Still Patient Discharge Details Diagnosis: Syncope Physicians Team ED Provider: Kisha Zarco Primary Care Provider: Primary Care Yina Aranda Attending Provider: Sg Alvarez Status ED Status: Admitted Observation Patient
[2017-12-16 02:01] LABS: Baso # (Auto) 0.1 th/mm3 (0.0-0.2); Baso % (Auto) 0.8 % (0.0-2.0); Eos # (Auto) 0.1 th/mm3 (0.0-0.4); Eos % (Auto) 0.5 % (0.0-4.0); Hematocrit 40.7 % (39.0-51.0); Hemoglobin 13.7 gm/dL (13.0-17.0); Lymph # (Auto) 3.2 th/mm3 (1.0-4.8); Lymph % (Auto) 19.2 % (9.0-44.0); Mean Corpuscular HGB Conc 33.7 % (32.0-36.0); Mean Corpuscular Hemoglobin 28.8 pg (27.0-34.0); Mean Corpuscular Volume 85.3 fL (80.0-100.0); Mean Platelet Volume 9.9 fL (7.0-11.0); Mono # (Auto) 1.2 th/mm3 (0.0-0.9); Neut # (Auto) 12.3 th/mm3 (1.8-7.7); Neut % (Auto) 72.5 % (16.0-70.0); Platelet Count 326 th/mm3 (150-450); Red Blood Count 4.77 mil/mm3 (4.50-5.90); Red Cell Distribution Width 14.7 % (11.6-17.2); White Blood Count 16.9 th/mm3 (4.0-11.0)
[2017-12-16 02:19] LABS: Activated Partial Thrombo Time 26.9 sec (24.3-30.1); Alanine Aminotransferase 38 U/L (12-78); Anion Gap 10 meq/L (5-15); Aspartate Aminotransferase 34 U/L (15-37); Blood Urea Nitrogen 15 mg/dL (7-18); Calcium 8.7 mg/dL (8.5-10.1); Carbon Dioxide 23.1 meq/L (21.0-32.0); Chloride 105 meq/L (98-107); Glomerular Filtration Rate 80 mL/min (>89); Glucose,Random 110 mg/dL (74-106); Lipase 122 U/L (73-393); Potassium 3.9 meq/L (3.5-5.1); Prothrombin Time 10.5 sec (9.8-11.6); Sodium 138 meq/L (136-145)
[2017-12-16 02:22] LABS: Alkaline Phosphatase 57 U/L (45-117); Creatine Kinase 510 U/L (39-308); D-Dimer 0.23 mg/L FEU (0.00-0.50); Total Protein 8.4 g/dL (6.4-8.2)
--- NOTE | 2017-12-16 02:24 | XR ---
EXAM DATE: 12/16/2017 1:58 AM EDT AGE/SEX: 27 years / Male INDICATIONS: Left side chest pain. CLINICAL DATA: This is the patient's initial encounter. Patient reports that signs and symptoms have been present for 1 day and indicates a pain score of 4/10. MEDICAL/SURGICAL HISTORY: None. None. COMPARISON: No prior exams available for comparison. FINDINGS: A single AP view of the chest demonstrates the lungs to be symmetrically aerated without evidence of mass, infiltrate or effusion. The cardiomediastinal contours are unremarkable. Osseous structures a re intact. CONCLUSION: No acute cardiopulmonary disease Electronically signed by: Isaiah Gray MD 12/16/2017 2:23 AM EDT
[2017-12-16 02:35] LABS: CKMB Percent 0.8 % (0.0-4.0); Creatine Kinase MB 4.1 ng/mL (0.5-3.6)
[2017-12-16 02:40] LABS: Bilirubin,Urine Negative (Negative); Clarity,Urine Hazy (Clear); Color,Urine Yellow (Yellw/Straw); Glucose,Urine (UA) Negative (Negative); Leukocyte Esterase,Urine Negative (Negative); Mucus,Urine Few /lpf (Occasional); Nitrite,Urine Negative (Negative); Specific Gravity,Urine 1.029 (1.002-1.035)
[2017-12-16] MEDS: Sod Chloride 0.9% Inj 1,000 ML IV.CONT SCH ×2 (04:45→18:46)
[2017-12-16] MEDS ORDERED: Morphine Inj 4 MG/ML Vial IV.PUSH PRN ×2 (05:33)
--- NOTE | 2017-12-16 05:33 | P.HPIM ---
History of Present Illness Primary Care Physician: No Primary Care Physician History of Present Illness: Mr. Chau is a 27-year-old male. She reports while at work today he had an episode of racing heart and feeling like he was going to pass out. He felt dizzy. He had to be walked by coworkers to the bathroom. She does not recall losing consciousness. However he did lose a sense of time. 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 He does admit he was under stress. However he has been under stress before. She did drink a monster drink (caffeine) but he often drinks these drinks but no more than 1 drink at a time and only 1 or 2 in a 24 hour period. Of concern is that his syncopal/presyncopal episode lasted 5-10 minutes , which would introduce the possibility of heart rhythm issue rather than something such as orthostatic hypotension. At baseline he is on Abilify for PTSD. He feels a little dizzy when seen but is feeling closer to baseline. No other complaints. He did report that when the event was occurring he had chest pain. He is not a smoker. - Diagnosis (1) Chest pain (2) Syncope (3) HTN (hypertension) Review of Systems Constitutional: Denies chills, Denies fever(s), Denies malaise, Denies night sweats Eyes: Denies blind spots, Denies blurry vision, Denies change in vision, Denies double vision Ears, Nose, Mouth, and Throat: Reports dizziness, Denies abnormal hearing, Denies bleeding gums Cardiovascular: Denies chest pain, Denies chest pain at rest, Denies chest pain with activity Respiratory: Denies cough, Denies shortness of breath, Denies wheezing Gastrointestinal: Denies abdominal pain, Denies black, tarry stools, Denies bright, red blood in stools Musculoskeletal: Denies abnormal walking, Denies back pain, Denies body aches Skin/Breast: Denies rash, Denies skin pain, Denies skin ulcer PMFSH - History History Provided By: Patient - Medical History Medical History: Medical History (Last Updated 12/16/17 @ 02:13 by Renée Muir RN) Diabetes (Acute) HTN (hypertension) (Acute) - Surgical History Surgical History: Surgical History (Last Updated 12/16/17 @ 02:13 by Renée Muir RN) No history of previous surgery (Acute) - Family History Family History: Family History (Last Updated 12/16/17 @ 05:29 by Faizan Gaxiola MD) Other Osteoarthritis - Tobacco History Tobacco Use In Past 30 Days: Yes Smoking Status: Never smoker Tobacco Type: Smokeless Tobacco - Alcohol History How Often Do You Have a Drink Containing Alcohol: Monthly or less - Substance Use History Substance History: No History of Abuse - Travel History Recent Travel in the [place] Within the Last 8 Weeks: No Recent Travel Out of the Country Within the Last 8 Weeks: No - Immunization History Tetanus Immunization: Unsure Hx Influenza Vaccine This Season: Yes Medications and Allergies Active Medications: Active Medications Al Hydroxide/Mg Hydroxide (Milk Of Enrique Liq) 30 ml PO Q12H PRN PRN Reason: Mild Constipation Aripiprazole (Abilify) 5 mg PO DAILY [facility] Sodium Chloride (Ns Inj) 1,000 mls @ 100 mls/hr IV.CONT .Q10H ALEXA Last Admin: 12/16/17 04:45 Dose: 100 mls/hr Losartan Potassium (Cozaar) 50 mg PO DAILY ALEXA Ondansetron HCl (Zofran Inj) 4 mg IV.PUSH Q6H PRN PRN Reason: NAUSEA OR VOMITING Sodium Chloride (Ns Flush) 2 ml IV.FLUSH UNSCH PRN PRN Reason: FLUSH AFTER USING IV ACCESS Allergies Allergy/AdvReac Type Severity Reaction Status Date / Time No Known Allergies Allergy Verified 12/16/17 01:20 Home Medications Medication Instructions Recorded Confirmed Type aripiprazole [Abilify] 5 mg PO DAILY 12/16/17 12/16/17 History losartan 50 mg PO DAILY 12/16/17 12/16/17 History Exam Vital signs: Vital Signs 12/16/17 01:23 12/16/17 02:19 12/16/17 02:51 Temperature 97.9 F Pulse Rate 98 H 94 H Respiratory Rate 17 17 Blood Pressure 143/69 H 143/69 H Pulse Oximetry 99 98 98 12/16/17 04:46 Temperature Pulse Rate 92 H Respiratory Rate 16 Blood Pressure 119/69 Pulse Oximetry Intake & Output 12/15/17 12/15/17 12/16/17 06:59 18:59 06:59 Weight 149.685 kg Narrative: GENERAL: NAD, A&Ox3 HEAD: Normocephalic. NECK: Supple, trachea midline. No lymphadenopathy. EYES: No scleral icterus. No injection or drainage. CARDIOVASCULAR: Regular rate and rhythm without murmurs, gallops, or rubs. RESPIRATORY: Breath sounds equal bilaterally. No accessory muscle use. GASTROINTESTINAL: Abdomen soft, non-tender, nondistended. MUSCULOSKELETAL: No cyanosis, or edema. SKIN: Warm and dry. NEURO: No focal neurological deficits. Results - Labs CBC & Chem 7: 12/16/17 01:30 12/16/17 01:30 Labs: Short CBC 12/16/17 Range/Units 01:30 WBC 16.9 H (4.0-11.0) th/mm3 Hgb 13.7 (13.0-17.0) gm/dL Hct 40.7 (39.0-51.0) % Plt Count 326 (150-450) th/mm3 BMP 12/16/17 01:30 Sodium 138 Potassium 3.9 Chloride 105 Carbon Dioxide 23.1 BUN 15 Creatinine 1.10 Calcium 8.7 Cardiac Enzymes 12/16/17 Range/Units 01:30 Total Creatine Kinase 510 H (39-308) U/L CK-MB (CK-2) 4.1 H (0.5-3.6) ng/mL Troponin I Less than 0.02 L (0.02-0.05) ng/mL Liver Function 12/16/17 Range/Units 01:30 Total Bilirubin 0.3 (0.2-1.0) mg/dL AST 34 (15-37) U/L ALT 38 (12-78) U/L Alkaline Phosphatase 57 (45-117) U/L Albumin 4.0 (3.4-5.0) g/dL Urine 12/16/17 Range/Units 02:13 Urine Color Yellow (Yellw/Straw) Urine Clarity Hazy H (Clear) Urine pH 5.0 (5.0-8.5) Ur Specific [place] 1.029 (1.002-1.035) Urine Protein Negative (Neg-Trace) mg/dL Urine Glucose (UA) Negative (Negative) mg/dL - Imaging Impressions Chest X-Ray 12/16/17 01:18 CONCLUSION: No acute cardiopulmonary disease Caprini VTE Risk Assessment Caprini VTE Risk Assessment: No/Low Risk (score <= 1) Caprini Risk Assessment Model: Point Value = 1 Point Value = 2 Point Value = 3 Point Value = 5 Age 41-60 Minor surgery BMI > 25 kg/m2 Swollen legs Varicose veins or History of unexplained or recurrent spontaneous Oral contraceptives or hormone replacement Sepsis (< 1 month) Serious lung disease, including pneumonia (< 1 month) Abnormal pulmonary function Acute myocardial infarction Congestive heart failure (< 1 month) History of inflammatory bowel disease Medical patient at bed rest Age 61-74 Arthroscopic surgery Major open surgery (> 45 min) Laparoscopic surgery (> 45 min) Malignancy Confined to bed (> 72 hours) Immobilizing plaster cast Central venous access Age >= 75 History of VTE Family history of VTE Factor V Leiden Prothrombin [id number] Lupus anticoagulant Anticardiolipin antibodies Elevated serum homocysteine Heparin-induced thrombocytopenia Other congenital or acquired thrombophilia Stroke (< 1 month) Elective arthroplasty Hip, pelvis, or leg fracture Acute spinal cord injury (< 1 month) Prophylaxis Regimen: Total Risk Factor Score Risk Level Prophylaxis Regimen 0-1 Low Early ambulation 2 Moderate Order ONE of the following: *Sequential Compression Device (SCD) *Heparin 5000 units SQ BID 3-4 Higher Order ONE of the following medications: *Heparin 5000 units SQ TID *Enoxaparin/Lovenox 40 mg SQ daily (WT < 150 kg, CrCl > 30 mL/min) *Enoxaparin/Lovenox 30 mg SQ daily (WT < 150 kg, CrCl > 10-29 mL/min) *Enoxaparin/Lovenox 30 mg SQ BID (WT < 150 kg, CrCl > 30 mL/min) AND/OR *Sequential Compression Device (SCD) 5 or more Highest Order ONE of the following medications: *Heparin 5000 units SQ TID (Preferred with Epidurals) *Enoxaparin/Lovenox 40 mg SQ daily (WT < 150 kg, CrCl > 30 mL/min) *Enoxaparin/Lovenox 30 mg SQ daily (WT < 150 kg, CrCl > 10-29 mL/min) *Enoxaparin/Lovenox 30 mg SQ BID (WT < 150 kg, CrCl > 30 mL/min) AND *Sequential Compression Device (SCD) Assessment and Plan - Assessment (1) Chest pain Code(s): R07.9 - Chest pain, unspecified Status: Acute (2) Syncope Code(s): R55 - Syncope and collapse Status: Acute (3) HTN (hypertension) Code(s): I10 - Essential (primary) hypertension Status: Acute - Plan 27-year-old male admitted secondary to syncope Syncope Telemetry Orthostatic BP check Echocardiogram Carotid Ultrasound Follow for evidence of recurrence Chest pain Lower risk given age Evaluate for ACS Follow cardiac enzymes Aspirin daily When necessary oxygen When necessary nitroglycerin Follow on telemetry Cardiology consult if positive findings occur Hypertension Discontinue losartan Start lisinopril DVT prophylaxis Heparin
--- NOTE | 2017-12-16 08:41 | ECG ---
Date Performed: 12/16/2017 Time Performed: 01:22:55 PTAGE: 27 years EKG: Sinus rhythm NORMAL ECG PREVIOUS TRACING : 03/02/2017 12.17 No significant change from previous tracing noted. DOCTOR: Harsha Sherman Interpretating Date/Time 12/18/2017 07:15:51
[2017-12-16] MEDS ORDERED: ARIPiprazole 5 MG Tablet PO SCH (09:00)
[2017-12-16] MEDS ORDERED: Lisinopril 20 MG Tablet PO SCH (09:00)
--- NOTE | 2017-12-16 09:20 | US ---
EXAM DATE: 12/16/2017 9:00 AM EDT AGE/SEX: 27 years / Male INDICATIONS: Syncope. CLINICAL DATA: This is the patient's initial encounter. Patient reports that signs and symptoms have been present for 1 day and indicates a pain score of 2/10. MEDICAL/SURGICAL HISTORY: Hypertension. Diabetes. None. COMPARISON: No prior exams available for comparison. VELOCITY PARAMETERS: ICA/CCA Ratio: Right 1.1 , Left 0.9 ICA: Right 101 cm/sec, Left 127 cm/sec CCA: Right 93 cm/sec, Left 134 cm/sec ECA: Right 154 cm/sec, Left 159 cm/sec Vertebral: Right 48 cm/sec antegrade, Left 53 cm/sec antegrade FINDINGS: Right Carotid: There may be a tiny heather of calcium in the distal common carotid artery. Otherwise, no significant atherosclerotic disease.The waveforms are within normal limits. Left Carotid: No significant plaque is visualized. The waveforms are within normal limits. Other: None. CONCLUSION: 1. Right Internal Carotid Artery: There may be a tiny heather of calcium in the distal common carotid artery. No Doppler findings of a hemodynamically significant stenosis. 2. Left Internal Carotid Artery: Sonographically normal without atherosclerotic disease. No Doppler findings of a hemodynamically significant stenosis. 3. Antegrade flow in both vertebral arteries. Electronically signed by: Tino Booth MD 12/16/2017 9:19 AM EDT
--- NOTE | 2017-12-16 11:46 | ECG ---
Date Performed: 12/16/2017 Time Performed: 07:39:07 PTAGE: 27 years EKG: Sinus rhythm NORMAL ECG PREVIOUS TRACING : 12/16/2017 01.22 No significant change from previous tracing noted. DOCTOR: Harsha Sherman Interpretating Date/Time 12/16/2017 11:42:56
--- NOTE | 2017-12-16 12:27 | P.PNIM ---
Subjective Interval history: Mr. Chau is a 27-year-old male. She reports while at work today he had an episode of racing heart and feeling like he was going to pass out. He felt dizzy. He had to be walked by coworkers to the bathroom. She does not recall losing consciousness. However he did lose a sense of time. 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 However he has been under stress before. She did drink a monster drink (caffeine) but he often drinks these drinks but no more than 1 drink at a time and only 1 or 2 in a 24 hour period. Of concern is that his syncopal/presyncopal episode lasted 5-10 minutes , which would introduce the possibility of heart rhythm issue rather than something such as orthostatic hypotension. At baseline he is on Abilify for PTSD. He feels a little dizzy when seen but is feeling closer to baseline. No other complaints. He did report that when the event was occurring he had chest pain. He is not a smoker. 8-15 RECENTLY STARTED ON ABILIFY 5MG PO DAILY WILL GET CAT SCAN OF HIS HEAD AWAIT ECHO POSSIBLE DC LATER TODAY Physical Exam Vital signs: Vital Signs 12/16/17 01:23 12/16/17 02:19 12/16/17 02:51 Temperature 97.9 F Pulse Rate 98 H 94 H Respiratory Rate 17 17 Blood Pressure 143/69 H 143/69 H Pulse Oximetry 99 98 98 12/16/17 04:46 12/16/17 07:30 12/16/17 08:00 Temperature 98 F 97.6 F Pulse Rate 92 H 94 H 89 Respiratory Rate 16 18 18 Blood Pressure 119/69 118/67 130/69 Pulse Oximetry 100 98 12/16/17 09:13 Temperature Pulse Rate 88 Respiratory Rate Blood Pressure Pulse Oximetry Intake & Output 12/15/17 12/16/17 12/16/17 18:59 06:59 18:59 Intake Total 500 / 500 Balance 500 / 500 Weight 149.685 kg 149.685 kg Intake: IV 500 / 500 NS Inj 500 ML @ Wide Open IV. 500 / 500 SIG ONCE ONE Rx#:[id number] Other: Weight On Admission 149.685 kg Narrative: GENERAL: Awake alert and oriented 3 talkative and cooperative SKIN: Warm and dry. HEAD: Atraumatic. Normocephalic. EYES: Pupils equal and round. No scleral icterus. No injection or drainage. EOMI ENT: No nasal bleeding or discharge. Mucous membranes pink and moist. Tongue is midline NECK: Trachea midline. No JVD. Supple CARDIOVASCULAR: Regular rate and rhythm. S1-S2 no S3 or S4 RESPIRATORY: No accessory muscle use. Clear to auscultation. Breath sounds equal bilaterally. GASTROINTESTINAL: Abdomen soft, non-tender, nondistended. Hepatic and splenic margins not palpable. MUSCULOSKELETAL: Extremities without clubbing, cyanosis, or edema. No obvious deformities. NEUROLOGICAL: Awake and alert. No obvious cranial nerve deficits. Motor grossly within normal limits. Five out of 5 muscle strength in the arms and legs. Normal speech. PSYCHIATRIC: Appropriate mood and affect; insight and judgment normal. Results - Labs CBC & Chem 7: 12/16/17 01:30 12/16/17 01:30 Laboratory Results - last 24 hr 12/16/17 12/16/17 12/16/17 01:30 01:30 01:30 WBC 16.9 H RBC 4.77 Hgb 13.7 Hct 40.7 MCV 85.3 MCH 28.8 MCHC 33.7 RDW 14.7 Plt Count 326 MPV 9.9 Neut % (Auto) 72.5 H Lymph % (Auto) 19.2 [place] % (Auto) 7.0 Eos % (Auto) 0.5 Baso % (Auto) 0.8 Neut # (Auto) 12.3 H Lymph # (Auto) 3.2 [place] # (Auto) 1.2 H Eos # (Auto) 0.1 Baso # (Auto) 0.1 WBC Differential . Differential Comment Auto diff final PT 10.5 INR 1.0 APTT 26.9 D-Dimer Quant (PE/DVT) 0.23 Sodium Potassium Chloride Carbon Dioxide Anion Gap BUN Creatinine Estimated GFR Random Glucose Calcium Magnesium Total Bilirubin AST ALT Alkaline Phosphatase Total Creatine Kinase CK-MB (CK-2) CK-MB (CK-2) % Troponin I B-Natriuretic Peptide 3 Total Protein Albumin Lipase Urine Color Urine Clarity Urine pH Ur Specific [place] Urine Protein Urine Glucose (UA) Urine Ketones Urine Occult Blood Urine Nitrate Urine Bilirubin Urine Urobilinogen Ur Leukocyte Esterase Urine RBC Urine WBC Urine Mucus Micro UA Comment Urine Culture Comments 12/16/17 12/16/17 12/16/17 01:30 02:13 07:43 WBC RBC Hgb Hct MCV MCH MCHC RDW Plt Count MPV Neut % (Auto) Lymph % (Auto) [place] % (Auto) Eos % (Auto) Baso % (Auto) Neut # (Auto) Lymph # (Auto) [place] # (Auto) Eos # (Auto) Baso # (Auto) WBC Differential Differential Comment PT INR APTT D-Dimer Quant (PE/DVT) Sodium 138 Potassium 3.9 Chloride 105 Carbon Dioxide 23.1 Anion Gap 10 BUN 15 Creatinine 1.10 Estimated GFR 80 L Random Glucose 110 H Calcium 8.7 Magnesium 2.0 Total Bilirubin 0.3 AST 34 ALT 38 Alkaline Phosphatase 57 Total Creatine Kinase 510 H CK-MB (CK-2) 4.1 H CK-MB (CK-2) % 0.8 Troponin I Less than 0.02 L Less than 0.02 L B-Natriuretic Peptide Total Protein 8.4 H Albumin 4.0 Lipase 122 Urine Color Yellow Urine Clarity Hazy H Urine pH 5.0 Ur Specific [place] 1.029 Urine Protein Negative Urine Glucose (UA) Negative Urine Ketones Negative Urine Occult Blood Negative Urine Nitrate Negative Urine Bilirubin Negative Urine Urobilinogen Less than 2 Ur Leukocyte Esterase Negative Urine RBC Less than 1 Urine WBC Less than 1 Urine Mucus Few H Micro UA Comment Culture not ind Urine Culture Comments Culture not ind - Imaging Impressions Carotid Doppler Study 12/16/17 00:00 CONCLUSION: 1. Right Internal Carotid Artery: There may be a tiny heather of calcium in the distal common carotid artery. No Doppler findings of a hemodynamically significant stenosis. 2. Left Internal Carotid Artery: Sonographically normal without atherosclerotic disease. No Doppler findings of a hemodynamically significant stenosis. 3. Antegrade flow in both vertebral arteries. Chest X-Ray 12/16/17 01:18 CONCLUSION: No acute cardiopulmonary disease Assessment and Plan - Assessment (1) Chest pain Code(s): R07.9 - Chest pain, unspecified Status: Acute (2) Syncope Code(s): R55 - Syncope and collapse Status: Acute (3) HTN (hypertension) Code(s): I10 - Essential (primary) hypertension Status: Acute - Plan 27-year-old male admitted secondary to syncope Syncope Telemetry Orthostatic BP check Echocardiogram Carotid Ultrasound-NEGATIVE Follow for evidence of recurrence SUSPECT MAY BE DUE TO ABILIFY Chest pain Lower risk given age Evaluate for ACS Follow cardiac enzymes Aspirin daily When necessary oxygen When necessary nitroglycerin Follow on telemetry Cardiology consult if positive findings occur Hypertension Discontinue losartan Start lisinopril PTSD ON ABILIFY- MAY BE CAUSE OF SYNCOPE DVT prophylaxis Heparin WILL ORDER CAT SCAN OF HEAD Code Status: FULL CODE Discussed Condition With: RN AND PT AND CM AND FAMILY Discharge Planning: HOPEFULLY IF ECHO AND CT HEAD ARE NEGATIVE (2) Syncope Qualifiers: Syncope type: unspecified Qualified Code(s): R55 - Syncope and collapse
--- NOTE | 2017-12-16 15:37 | CT ---
EXAM DATE: 12/16/2017 3:33 PM EDT AGE/SEX: 27 years / Male INDICATIONS: Frontal headache, dizziness. CLINICAL DATA: This is the patient's initial encounter. Patient reports that signs and symptoms have been present for 1 day and indicates a pain score of 6/10. MEDICAL/SURGICAL HISTORY: Diabetes. Hypertension. None. RADIATION DOSE: 43.86 CTDI (mGy) COMPARISON: . TECHNIQUE: CT of the head without contrast. Using automated exposure control and adjustment of the mA and/or kV according to patient size, radiation dose was kept as low as reasonably achievable to ob tain optimal diagnostic quality images. DICOM format image data is available electronically for revi ew and comparison. FINDINGS: Cerebrum: The ventricles are normal for age. No evidence of midline shift, mass lesion, hemorrhage or acute infarction. No extraaxial fluid collections are seen. Posterior Fossa: The cerebellum and brainstem are intact. The 4th ventricle is midline. The cerebe llopontine angle is unremarkable. Extracranial: The visualized portion of the orbits is intact. Skull: The calvaria is intact. No evidence of skull fracture. CONCLUSION: Negative exam. No change from prior. . Electronically signed by: Tino Booth MD 12/16/2017 3:36 PM EDT
--- NOTE | 2017-12-16 17:34 | ECHRPT ---
Indication: CARDIOMYOPATHY CONCLUSIONS Mildly dilated left ventricle. Wall thickness is normal. The left ventricular systolic function is normal with an estimated ejection fraction of 55%. BP: / HR: Rhythm: MEASUREMENTS (Male / Female) Normal Values Technical Quality: 2D ECHO LV Diastolic Diameter PLAX 5.1 cm 4.2 - 5.9 / 3.9 - 5.3 cm LV Systolic Diameter PLAX 3.7 cm IVS Diastolic Thickness 1.0 cm 0.6 - 1.0 / 0.6 - 0.9 cm LVPW Diastolic Thickness 0.9 cm 0.6 - 1.0 / 0.6 - 0.9 cm LV Relative Wall Thickness 0.4 RV Internal Dim ED PLAX 2.1 cm LA Systolic Diameter LX 3.1 cm 3.0 - 4.0 / 2.7 - 3.8 cm M-MODE Aortic Root Diameter MM 3.1 cm AV Cusp Separation MM 2.2 cm DOPPLER Mitral E Point Velocity 100.0 cm/s Mitral A Point Velocity 65.4 cm/s Mitral E to A Ratio 1.5 TR Peak Velocity 138.0 cm/s TR Peak Gradient 7.6 mmHg Right Atrial Pressure 10.0 mmHg Pulmonary Artery Systolic Pressu 17.6 mmHg Right Ventricular Systolic Press 17.6 mmHg FINDINGS LEFT VENTRICLE Mildly dilated left ventricle. Wall thickness is normal. The left ventricular systolic function is normal with an estimated ejection fraction of 55%. RIGHT VENTRICLE Normal right ventricular size and systolic function. LEFT ATRIUM The left atrial size is normal. RIGHT ATRIUM The right atrial size is normal. ATRIAL SEPTUM Normal atrial septal thickness without atrial level shunting by limited color doppler interrogation. AORTA The aortic root and proximal ascending aorta are normal in size on limited imaging. MITRAL VALVE Structurally normal mitral valve. No mitral valve stenosis or regurgitation. AORTIC VALVE Trileaflet aortic valve. No aortic valve stenosis or regurgitation. TRICUSPID VALVE Structurally normal tricuspid valve. No tricuspid valve stenosis or regurgitation. PULMONARY VALVE Trivial pulmonary valve regurgitation. VESSELS The inferior vena cava is normal in size. PERICARDIUM No pericardial effusion. Maco Austin MD, FACC (Electronically Signed) Final Date:16 December 2017 17:33
--- NOTE | 2017-12-16 19:20 | P.DS ---
Date of admission: 12/16/17 04:06 Primary care physician: No Primary Care Physician Attending physician on discharge: Sg Alvarez Anticipated date of discharge: 12/16/17 Brief History from admission: Mr. Chau is a 27-year-old male. She reports while at work today he had an episode of racing heart and feeling like he was going to pass out. He felt dizzy. He had to be walked by coworkers to the bathroom. She does not recall losing consciousness. However he did lose a sense of time. 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 However he has been under stress before. She did drink a monster drink (caffeine) but he often drinks these drinks but no more than 1 drink at a time and only 1 or 2 in a 24 hour period. Of concern is that his syncopal/presyncopal episode lasted 5-10 minutes , which would introduce the possibility of heart rhythm issue rather than something such as orthostatic hypotension. At baseline he is on Abilify for PTSD. He feels a little dizzy when seen but is feeling closer to baseline. No other complaints. He did report that when the event was occurring he had chest pain. He is not a smoker. DS: Diagnosis - Discharge Diagnosis (1) Chest pain Status: Acute (2) Syncope Status: Acute (3) HTN (hypertension) Status: Chronic DS: Summary Hospital Course: Mr. Chau is a 27-year-old male. She reports while at work today he had an episode of racing heart and feeling like he was going to pass out. He felt dizzy. He had to be walked by coworkers to the bathroom. She does not recall losing consciousness. However he did lose a sense of time. 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 However he has been under stress before. She did drink a monster drink (caffeine) but he often drinks these drinks but no more than 1 drink at a time and only 1 or 2 in a 24 hour period. Of concern is that his syncopal/presyncopal episode lasted 5-10 minutes , which would introduce the possibility of heart rhythm issue rather than something such as orthostatic hypotension. At baseline he is on Abilify for PTSD. He feels a little dizzy when seen but is feeling closer to baseline. No other complaints. He did report that when the event was occurring he had chest pain. He is not a smoker. 8-15 RECENTLY STARTED ON ABILIFY 5MG PO DAILY WILL GET CAT SCAN OF HIS HEAD-NEGATIVE FOR ANY PATHOLOGY ECHO WAS STABLE DC TODAY - Time Spent with Patient Total time spent providing and/or coordinating discharge services: Greater than 30 minutes - Quality: VTE Deep Vein Thrombosis/Pulmonary Embolism Present on Admission: No Exam Vital signs: Vital Signs 12/16/17 01:23 12/16/17 02:19 12/16/17 02:51 Temperature 97.9 F Pulse Rate 98 H 94 H Respiratory Rate 17 17 Blood Pressure 143/69 H 143/69 H Pulse Oximetry 99 98 98 12/16/17 04:46 12/16/17 07:30 12/16/17 08:00 Temperature 98 F 97.6 F Pulse Rate 92 H 94 H 89 Respiratory Rate 16 18 18 Blood Pressure 119/69 118/67 130/69 Pulse Oximetry 100 98 12/16/17 09:13 12/16/17 12:00 12/16/17 12:12 Temperature 97.8 F Pulse Rate 88 86 81 Respiratory Rate 18 Blood Pressure 126/66 Pulse Oximetry 98 12/16/17 16:00 12/16/17 18:46 Temperature 98.8 F 97.9 F Pulse Rate 75 81 Respiratory Rate 18 18 Blood Pressure 124/71 121/71 Pulse Oximetry 97 95 Intake & Output 12/16/17 12/16/17 12/17/17 06:59 18:59 06:59 Intake Total 1500 / 1500 Balance 1500 / 1500 Weight 149.685 kg 149.685 kg Intake: IV 1500 / 1500 NS Inj 1,000 ML @ 100 mls/hr IV 1000 / 1000 .CONT .Q10H ALEXA Rx#:[id number] NS Inj 500 ML @ Wide Open IV. 500 / 500 SIG ONCE ONE Rx#:[id number] Other: # Voids 1 Weight On Admission 149.685 kg Narrative: GENERAL: Awake alert and oriented 3 talkative and cooperative SKIN: Warm and dry. HEAD: Atraumatic. Normocephalic. EYES: Pupils equal and round. No scleral icterus. No injection or drainage. EOMI ENT: No nasal bleeding or discharge. Mucous membranes pink and moist. Tongue is midline NECK: Trachea midline. No JVD. Supple CARDIOVASCULAR: Regular rate and rhythm. S1-S2 no S3 or S4 RESPIRATORY: No accessory muscle use. Clear to auscultation. Breath sounds equal bilaterally. GASTROINTESTINAL: Abdomen soft, non-tender, nondistended. Hepatic and splenic margins not palpable. MUSCULOSKELETAL: Extremities without clubbing, cyanosis, or edema. No obvious deformities. NEUROLOGICAL: Awake and alert. No obvious cranial nerve deficits. Motor grossly within normal limits. Five out of 5 muscle strength in the arms and legs. Normal speech. PSYCHIATRIC: Appropriate mood and affect; insight and judgment normal. Results Procedures completed during hospitalization: NONE Completed studies during hospitalization: Laboratory Results WBC 16.9 th/mm3 (4.0-11.0) H 12/16/17 01:30 RBC 4.77 mil/mm3 (4.50-5.90) 12/16/17 01:30 Hgb 13.7 gm/dL (13.0-17.0) 12/16/17 01:30 Hct 40.7 % (39.0-51.0) 12/16/17 01:30 MCV 85.3 fL (80.0-100.0) 12/16/17 01:30 MCH 28.8 pg (27.0-34.0) 12/16/17 01:30 MCHC 33.7 % (32.0-36.0) 12/16/17 01:30 RDW 14.7 % (11.6-17.2) 12/16/17 01:30 Plt Count 326 th/mm3 (150-450) 12/16/17 01:30 MPV 9.9 fL (7.0-11.0) 12/16/17 01:30 Neut % (Auto) 72.5 % (16.0-70.0) H 12/16/17 01:30 Lymph % (Auto) 19.2 % (9.0-44.0) 12/16/17 01:30 [place] % (Auto) 7.0 % (0.0-8.0) 12/16/17 01:30 Eos % (Auto) 0.5 % (0.0-4.0) 12/16/17 01:30 Baso % (Auto) 0.8 % (0.0-2.0) 12/16/17 01:30 Neut # (Auto) 12.3 th/mm3 (1.8-7.7) H 12/16/17 01:30 Lymph # (Auto) 3.2 th/mm3 (1.0-4.8) 12/16/17 01:30 [place] # (Auto) 1.2 th/mm3 (0.0-0.9) H 12/16/17 01:30 Eos # (Auto) 0.1 th/mm3 (0.0-0.4) 12/16/17 01:30 Baso # (Auto) 0.1 th/mm3 (0.0-0.2) 12/16/17 01:30 WBC Differential . 12/16/17 01:30 Differential Comment Auto diff final 12/16/17 01:30 PT 10.5 sec (9.8-11.6) 12/16/17 01:30 INR 1.0 Ratio 12/16/17 01:30 APTT 26.9 sec (24.3-30.1) 12/16/17 01:30 D-Dimer Quant (PE/DVT) 0.23 mg/L FEU (0.00-0.50) 12/16/17 01:30 Sodium 138 meq/L (136-145) 12/16/17 01:30 Potassium 3.9 meq/L (3.5-5.1) 12/16/17 01:30 Chloride 105 meq/L (98-107) 12/16/17 01:30 Carbon Dioxide 23.1 meq/L (21.0-32.0) 12/16/17 01:30 Anion Gap 10 meq/L (5-15) 12/16/17 01:30 BUN 15 mg/dL (7-18) 12/16/17 01:30 Creatinine 1.10 mg/dL (0.60-1.30) 12/16/17 01:30 Estimated GFR 80 mL/min (>89) L 12/16/17 01:30 Random Glucose 110 mg/dL (74-106) H 12/16/17 01:30 Calcium 8.7 mg/dL (8.5-10.1) 12/16/17 01:30 Magnesium 2.0 mg/dL (1.5-2.5) 12/16/17 01:30 Total Bilirubin 0.3 mg/dL (0.2-1.0) 12/16/17 01:30 AST 34 U/L (15-37) 12/16/17 01:30 ALT 38 U/L (12-78) 12/16/17 01:30 Alkaline Phosphatase 57 U/L (45-117) 12/16/17 01:30 Total Creatine Kinase 510 U/L (39-308) H 12/16/17 01:30 CK-MB (CK-2) 4.1 ng/mL (0.5-3.6) H 12/16/17 01:30 CK-MB (CK-2) % 0.8 % (0.0-4.0) 12/16/17 01:30 Troponin I Less than 0.02 ng/mL (0.02-0.05) L 12/16/17 17:04 B-Natriuretic Peptide 3 pg/mL (0-100) 12/16/17 01:30 Total Protein 8.4 g/dL (6.4-8.2) H 12/16/17 01:30 Albumin 4.0 g/dL (3.4-5.0) 12/16/17 01:30 Lipase 122 U/L (73-393) 12/16/17 01:30 Urine Color Yellow (Yellw/Straw) 12/16/17 02:13 Urine Clarity Hazy (Clear) H 12/16/17 02:13 Urine pH 5.0 (5.0-8.5) 12/16/17 02:13 Ur Specific [place] 1.029 (1.002-1.035) 12/16/17 02:13 Urine Protein Negative mg/dL (Neg-Trace) 12/16/17 02:13 Urine Glucose (UA) Negative mg/dL (Negative) 12/16/17 02:13 Urine Ketones Negative mg/dL (Negative) 12/16/17 02:13 Urine Occult Blood Negative (Negative) 12/16/17 02:13 Urine Nitrate Negative (Negative) 12/16/17 02:13 Urine Bilirubin Negative (Negative) 12/16/17 02:13 Urine Urobilinogen Less than 2 mg/dL (Less than 2) 12/16/17 02:13 Ur Leukocyte Esterase Negative (Negative) 12/16/17 02:13 Urine RBC Less than 1 /hpf (0-3) 12/16/17 02:13 Urine WBC Less than 1 /hpf (0-5) 12/16/17 02:13 Urine Mucus Few /lpf (Occasional) H 12/16/17 02:13 Micro UA Comment Culture not ind 12/16/17 02:13 Urine Culture Comments Culture not ind 12/16/17 02:13 Impressions Carotid Doppler Study 12/16/17 00:00 CONCLUSION: 1. Right Internal Carotid Artery: There may be a tiny heather of calcium in the distal common carotid artery. No Doppler findings of a hemodynamically significant stenosis. 2. Left Internal Carotid Artery: Sonographically normal without atherosclerotic disease. No Doppler findings of a hemodynamically significant stenosis. 3. Antegrade flow in both vertebral arteries. Head CT 12/16/17 00:00 CONCLUSION: Negative exam. No change from prior. . Chest X-Ray 12/16/17 01:18 CONCLUSION: No acute cardiopulmonary disease Labs on day of discharge: Labs from last 24 hours 12/16/17 12/16/17 12/16/17 17:04 07:43 02:13 WBC RBC Hgb Hct MCV MCH MCHC RDW Plt Count MPV Neut % (Auto) Lymph % (Auto) [place] % (Auto) Eos % (Auto) Baso % (Auto) Neut # (Auto) Lymph # (Auto) [place] # (Auto) Eos # (Auto) Baso # (Auto) WBC Differential Differential Comment PT INR APTT D-Dimer Quant (PE/DVT) Sodium Potassium Chloride Carbon Dioxide Anion Gap BUN Creatinine Estimated GFR Random Glucose Calcium Magnesium Total Bilirubin AST ALT Alkaline Phosphatase Total Creatine Kinase CK-MB (CK-2) CK-MB (CK-2) % Troponin I Less than 0.02 L Less than 0.02 L B-Natriuretic Peptide Total Protein Albumin Lipase Urine Color Yellow Urine Clarity Hazy H Urine pH 5.0 Ur Specific [place] 1.029 Urine Protein Negative Urine Glucose (UA) Negative Urine Ketones Negative Urine Occult Blood Negative Urine Nitrate Negative Urine Bilirubin Negative Urine Urobilinogen Less than 2 Ur Leukocyte Esterase Negative Urine RBC Less than 1 Urine WBC Less than 1 Urine Mucus Few H Micro UA Comment Culture not ind Urine Culture Comments Culture not ind 12/16/17 12/16/17 12/16/17 01:30 01:30 01:30 WBC 16.9 H RBC 4.77 Hgb 13.7 Hct 40.7 MCV 85.3 MCH 28.8 MCHC 33.7 RDW 14.7 Plt Count 326 MPV 9.9 Neut % (Auto) 72.5 H Lymph % (Auto) 19.2 [place] % (Auto) 7.0 Eos % (Auto) 0.5 Baso % (Auto) 0.8 Neut # (Auto) 12.3 H Lymph # (Auto) 3.2 [place] # (Auto) 1.2 H Eos # (Auto) 0.1 Baso # (Auto) 0.1 WBC Differential . Differential Comment Auto diff final PT 10.5 INR 1.0 APTT 26.9 D-Dimer Quant (PE/DVT) 0.23 Sodium 138 Potassium 3.9 Chloride 105 Carbon Dioxide 23.1 Anion Gap 10 BUN 15 Creatinine 1.10 Estimated GFR 80 L Random Glucose 110 H Calcium 8.7 Magnesium 2.0 Total Bilirubin 0.3 AST 34 ALT 38 Alkaline Phosphatase 57 Total Creatine Kinase 510 H CK-MB (CK-2) 4.1 H CK-MB (CK-2) % 0.8 Troponin I Less than 0.02 L B-Natriuretic Peptide Total Protein 8.4 H Albumin 4.0 Lipase 122 Urine Color Urine Clarity Urine pH Ur Specific [place] Urine Protein Urine Glucose (UA) Urine Ketones Urine Occult Blood Urine Nitrate Urine Bilirubin Urine Urobilinogen Ur Leukocyte Esterase Urine RBC Urine WBC Urine Mucus Micro UA Comment Urine Culture Comments 12/16/17 01:30 WBC RBC Hgb Hct MCV MCH MCHC RDW Plt Count MPV Neut % (Auto) Lymph % (Auto) [place] % (Auto) Eos % (Auto) Baso % (Auto) Neut # (Auto) Lymph # (Auto) [place] # (Auto) Eos # (Auto) Baso # (Auto) WBC Differential Differential Comment PT INR APTT D-Dimer Quant (PE/DVT) Sodium Potassium Chloride Carbon Dioxide Anion Gap BUN Creatinine Estimated GFR Random Glucose Calcium Magnesium Total Bilirubin AST ALT Alkaline Phosphatase Total Creatine Kinase CK-MB (CK-2) CK-MB (CK-2) % Troponin I B-Natriuretic Peptide 3 Total Protein Albumin Lipase Urine Color Urine Clarity Urine pH Ur Specific [place] Urine Protein Urine Glucose (UA) Urine Ketones Urine Occult Blood Urine Nitrate Urine Bilirubin Urine Urobilinogen Ur Leukocyte Esterase Urine RBC Urine WBC Urine Mucus Micro UA Comment Urine Culture Comments - Impressions ITS Impressions Carotid Doppler Study 12/16/17 00:00 CONCLUSION: 1. Right Internal Carotid Artery: There may be a tiny heather of calcium in the distal common carotid artery. No Doppler findings of a hemodynamically significant stenosis. 2. Left Internal Carotid Artery: Sonographically normal without atherosclerotic disease. No Doppler findings of a hemodynamically significant stenosis. 3. Antegrade flow in both vertebral arteries. Head CT 12/16/17 00:00 CONCLUSION: Negative exam. No change from prior. . Chest X-Ray 12/16/17 01:18 CONCLUSION: No acute cardiopulmonary disease Discharge Plan - Discharge Disposition Patient Disposition: 01 Discharge Home - Discharge Condition Condition: Good - Discharge Order Discharge Orders: Discharge Order (Routine); Ordered 12/16/17 Ordered By: Sg Alvarez - Discharge Details Anticipated Discharge Date: 12/16/17 Discharge Comment: DC TO HOME - Physicians Team Primary Care Provider: Primary Care Nathaliei,No Attending Provider: Sg Alvarez
--- NOTE | 2017-12-17 13:21 | ECG ---
Date Performed: 12/16/2017 Time Performed: 14:04:16 PTAGE: 27 years EKG: Sinus rhythm POSSIBLE RIGHT VENTRICULAR CONDUCTION DELAY BORDERLINE ECG PREVIOUS TRACING : 12/16/2017 07.39 Since the previous tracing, no significant change noted DOCTOR: Daniel Baires Interpretating Date/Time 12/17/2017 13:21:06
== END 2017-12-16 20:00 | disposition home or self-care (01) ==
LOC: NEPC 00:51 → NEDA 00:51 → NEPFCDU 00:51
PROVIDERS: ADMIT Hospitalist; ATTEND Hospitalist
DX: R00.2 Palpitations; R00.0 Tachycardia, unspecified; Z83.3 Family history of diabetes mellitus; E11.9 Type 2 diabetes mellitus without complications; K30 Functional dyspepsia; R07.89 Other chest pain; R51 Headache; Z79.899 Other long term (current) drug therapy; R61 Generalized hyperhidrosis; Z79.82 Long term (current) use of aspirin; F43.10 Post-traumatic stress disorder, unspecified; F32.9 Major depressive disorder, single episode, unspecified; E78.5 Hyperlipidemia, unspecified; R11.0 Nausea; R55 Syncope and collapse; R42 Dizziness and giddiness; I10 Essential (primary) hypertension